=== PATIENT | male | born 1935 | race Caucasian/White ===

== ENCOUNTER 2016-12-29 14:12 | Inpatient (IN) | payer MEDICARE, OTHER ==
[~2016-12-29] VITALS: Ht 188 cm; Wt 111.2 kg
[~2016-12-29 14:12] MED LIST: ATOR20TA86 PO; ERGO500050 PO; ESCI10TA PO; FERR-89 PO; LISI1TAB9 PO; MET750 PO; OXYC10 PO; PRED10TA3 PO; SENN-161 PO
[2016-12-29] MEDS ORDERED: LOPERAMIDE HCL 2 MG CAPSULE PO ONE (15:00)
[2016-12-29] MEDS ORDERED: HYDROCORTISONE SOD SUCC 100 MG/2 ML VIAL IVP ONE (15:00)
[2016-12-29] MEDS ORDERED: ACETAMINOPHEN 1000 MG/ISO-OSM 100 ML IV ONE (15:00)
[2016-12-29] MEDS ORDERED: SODIUM CHLORIDE 0.9% 1,000 ML IV ONE ×4 (15:00→23:45)
[2016-12-29] MEDS ORDERED: ONDANSETRON HCL 4 MG/2 ML VIAL IVP ONE (15:00)
[2016-12-29 15:15] LABS: BASOPHILS % (AUTO) 0.1 % (0.0-2.0); EOSINOPHILS % (AUTO) 0.6 % (1.0-6.0); HEMATOCRIT 39.1 % (41-53); HEMOGLOBIN 12.9 g/dL (13.5-17.5); LYMPHOCYTES # (AUTO) 2.6 K/uL (1.0-4.8); LYMPHOCYTES % (AUTO) 10.2 % (22.0-44.0); MEAN CORPUSCULAR HEMOGLOBIN 29.6 pg (26.0-34.0); MEAN CORPUSCULAR VOLUME 89 fL (80-100); MONOCYTES # (AUTO) 0.7 K/uL (0.1-1.0); MONOCYTES % (AUTO) 2.9 % (2.0-9.0); NEUTROPHILS # (AUTO) 21.6 K/uL (1.8-7.7); PLATELET COUNT (AUTO) 163 K/uL (150-450); RED BLOOD CELL COUNT(AUTO) 4.37 MIL/uL (4.50-5.90); RED CELL DISTRIBUTION WIDTH 15.1 % (11.5-14.5); WHITE BLOOD COUNT (AUTO) 25.1 K/uL (4.5-11.0)
[2016-12-29 15:21] LABS: NEUTROPHILS % (AUTO) 86.2 % (40.0-70.0)
[2016-12-29 15:27] LABS: ANION GAP 11 mmol/L (8-16); CARBON DIOXIDE 26 mmol/L (22-29); CHLORIDE 101 mmol/L (98-107); CREATININE 4.19 mg/dL (0.60-1.30); GLOMERULAR FILTR. RATE CALC 14 mL/min (>60); SODIUM SERUM 138 mmol/L (136-145); UREA NITROGEN, BLOOD 34 mg/dL (7-18)
[2016-12-29 15:33] LABS: ALANINE AMINOTRANSFERASE 528 U/L (12-78); ALBUMIN 3.3 g/dL (3.4-5.0); ASPARTATE AMINOTRANSFERASE 365 U/L (15-37); BILIRUBIN,TOTAL 3.2 mg/dL (0.1-1.0); TOTAL PROTEIN, SERUM 6.1 g/dL (6.4-8.2)
[2016-12-29 15:52] LABS: LACTIC ACID 4.5 mmol/L (0.4-2.0)
[2016-12-29 16:28] LABS: APPEARANCE,URINE CLOUDY (CLEAR); GLUCOSE, URINE (UA) NEGATIVE (NEGATIVE); KETONES,URINE NEGATIVE (NEGATIVE); LEUKOCYTE ESTERASE ,URINE NEGATIVE (NEGATIVE); OCCULT BLOOD,URINE SMALL (NEGATIVE); PROTEIN,URINE POS 1+ (NEGATIVE)
[2016-12-29] MEDS ORDERED: PIPERACILLIN/TAZO 3.375 GM/D5W 50 ML IV ONE (16:30)
[2016-12-29 16:45] LABS: SQUAMOUS EPITHELIAL CELL,UR Few /LPF (None Seen)
[2016-12-29] MEDS ORDERED: LEVOFLOXACIN 500 MG/D5% WATER 100 ML IV ONE (16:45)
[2016-12-29] MEDS ORDERED: OSELTAMIVIR PHOSPHATE 75 MG CAPSULE PO ONE (16:45)
[2016-12-29 17:00] LABS: INFLUENZA TYPE B NEGATIVE FOR TYPE B (NEGATIVE)
[2016-12-29 17:10] LABS: REFLEX LACTIC ACID? YES YES
[2016-12-29] MEDS ORDERED: PHENYLEPHRINE 200 MG/D5%-WATER 250 ML IV PRN (17:30)
[2016-12-29] MEDS ORDERED: 0.9% SODIUM CHLORIDE 10 ML SYRINGE IVP PRN (19:15)
[2016-12-29] MEDS ORDERED: OxyCODONE HCL/ACETAMINOPHEN 5-325 MG TABLET PO PRN (19:15)
[2016-12-29] MEDS ORDERED: ACETAMINOPHEN 325 MG TABLET PO PRN (19:15)
[2016-12-29] MEDS ORDERED: MAGNESIUM HYDROXIDE SUSPENSION 30 ML UDCUP PO PRN (19:15)
[2016-12-29] MEDS ORDERED: ONDANSETRON HCL 4 MG/2 ML VIAL IVP PRN (19:15)
[2016-12-29] MEDS ORDERED: VANCOMYCIN HCL 1 GM/D5% WATER 200 ML IV PRN (19:30)
[2016-12-29] MEDS: DOCUSATE SODIUM 100 MG CAPSULE PO SCH (20:37)
[2016-12-29 20:40] VITALS: BP 112/62
[2016-12-29] MEDS: MethylPREDNISolone SOD SUCC 125 MG/2 ML VIAL IVP SCH (20:41)
[2016-12-29] MEDS: PANTOPRAZOLE SODIUM 40 MG/VIAL IVP SCH (20:41)
[2016-12-29] MEDS: VANCOMYCIN HCL 1 GM/D5% WATER 200 ML IV SCH (20:41)
[2016-12-29] MEDS: OxyCODONE HCL/ACETAMINOPHEN 5-325 MG TABLET PO PRN (20:51)
[2016-12-29 21:51] VITALS: BP 116/68
[2016-12-29] MEDS ORDERED: -PHARMACY VACCINE NOTE- MISC ONE ×2 (22:15)
[2016-12-29] MEDS ORDERED: INFLUENZA VIRUS VACCINE QVS 2016-17 (3YR+)/PF 60 MCG/0.5 ML SYRINGE IM ONE (22:15)
[2016-12-29] MEDS ORDERED: NOREPINEPHRINE 4 MG/D5%-WATER 250 ML IV PRN (22:38)
[2016-12-29] MEDS ORDERED: SODIUM CHLORIDE 0.9% 1,000 ML IV SCH (22:45)
[2016-12-29] MEDS: PIPERACILLIN SODIUM/TAZOBACTAM 2.25 GM in DEXTROSE 5%-WATER 50 ML IV SCH (23:22)
[2016-12-30] VITALS (7 sets, daily range): BP systolic 109–139; BP diastolic 61–90
[2016-12-30] MEDS ORDERED: ALBUMIN HUMAN 25%-25GM/100ML 100 ML IV SCH
[2016-12-30] MEDS: MethylPREDNISolone SOD SUCC 125 MG/2 ML VIAL IVP SCH ×4 (00:24→23:41)
[2016-12-30] MEDS: VANCOMYCIN HCL 1 GM/D5% WATER 200 ML IV SCH (00:24)
[2016-12-30] MEDS: PIPERACILLIN SODIUM/TAZOBACTAM 2.25 GM in DEXTROSE 5%-WATER 50 ML IV SCH ×4 (05:04→23:41)
[2016-12-30 06:20] LABS: CREATININE 4.08 mg/dL (0.60-1.30); MAGNESIUM 2.2 mg/dL (1.80-2.40); PHOSPHORUS 4.6 mg/dL (2.5-4.9); POTASSIUM 5.7 mmol/L (3.5-5.1)
[2016-12-30 06:21] LABS: HEMATOCRIT 36.7 % (41-53); HEMOGLOBIN 12.1 g/dL (13.5-17.5); MEAN CORPUSCULAR HEMOGLOBIN 29.7 pg (26.0-34.0); MEAN CORPUSCULAR HGB CONC 33.1 G/dL (31.0-37.0); MEAN CORPUSCULAR VOLUME 90 fL (80-100); PLATELET COUNT (AUTO) 134 K/uL (150-450); RED BLOOD CELL COUNT(AUTO) 4.08 MIL/uL (4.50-5.90); RED CELL DISTRIBUTION WIDTH 14.9 % (11.5-14.5); WHITE BLOOD COUNT (AUTO) 20.1 K/uL (4.5-11.0)
[2016-12-30 07:29] LABS: BAND NEUTROPHILS % (MANUAL) 3 % (1-5); LYMPHOCYTES % (MANUAL) 1 % (22-44); REACTIVE LYMPHOCYTES 4 % (0-0); TOTAL CELLS COUNTED 100
[2016-12-30] MEDS: DOCUSATE SODIUM 100 MG CAPSULE PO SCH ×3 (08:23→20:38)
[2016-12-30] MEDS: PANTOPRAZOLE SODIUM 40 MG/VIAL IVP SCH (08:23)
[2016-12-30] MEDS: OxyCODONE HCL/ACETAMINOPHEN 5-325 MG TABLET PO PRN (08:23)
[2016-12-30] MEDS ORDERED: SODIUM POLYSTYRENE SULFONATE 15 GM/60 ML SUSPENSION BOTTLE PO ONE (14:15)
[2016-12-30 19:11] LABS: ABG A-A DIFF O2 74.6 mmHg (10-20.0); ABG BASE EXCESS -3.8 mmol/L (-2.0-3.0); ABG HCO3 21.8 mmol/L (22.0-26.0); ABG OXYHEMOGLOBIN 95.9 % (94.0-100.0); ABG PCO2 34 mmHg (35-45); ABG PH 7.402 (7.35-7.450); TEMPERATURE, FAHRENHEIT, BG 98.6 FAHREN (96.0-98.6)
[2016-12-30 19:12] LABS: ALLEN TEST, BLOOD GAS Positive
[2016-12-31] VITALS: BP 115/77
[2016-12-31] MEDS: SODIUM CHLORIDE 0.9% 1,000 ML IV SCH ×2 (00:35→20:54)
[2016-12-31] MEDS: AZITHROMYCIN 500 MG/NS 250 ML IV SCH (01:06)
[2016-12-31 04:00] VITALS: BP 130/71
[2016-12-31] MEDS: PIPERACILLIN SODIUM/TAZOBACTAM 2.25 GM in DEXTROSE 5%-WATER 50 ML IV SCH (05:14)
[2016-12-31 05:20] LABS: HEMATOCRIT 35.1 % (41-53); HEMOGLOBIN 11.9 g/dL (13.5-17.5); MEAN CORPUSCULAR HEMOGLOBIN 29.8 pg (26.0-34.0); MEAN CORPUSCULAR HGB CONC 33.9 G/dL (31.0-37.0); MEAN CORPUSCULAR VOLUME 88 fL (80-100); PLATELET COUNT (AUTO) 147 K/uL (150-450); RED CELL DISTRIBUTION WIDTH 15.2 % (11.5-14.5)
[2016-12-31 05:39] LABS: BILIRUBIN,TOTAL 0.8 mg/dL (0.1-1.0); CALCIUM, TOTAL 8.2 mg/dL (8.8-10.5); CREATININE 3.1 mg/dL (0.60-1.30); POTASSIUM 4.5 mmol/L (3.5-5.1); TOTAL PROTEIN, SERUM 6.2 g/dL (6.4-8.2)
[2016-12-31 08:00] VITALS: BP 131/90
[2016-12-31] MEDS: DOCUSATE SODIUM 100 MG CAPSULE PO SCH ×2 (08:41→20:54)
[2016-12-31] MEDS: PANTOPRAZOLE SODIUM 40 MG/VIAL IVP SCH (08:41)
[2016-12-31] MEDS: MethylPREDNISolone SOD SUCC 125 MG/2 ML VIAL IVP SCH ×2 (08:41→15:12)
[2016-12-31] MEDS ORDERED: VANCOMYCIN HCL 1 GM/D5% WATER 200 ML IV ONE (09:00)
[2016-12-31] MEDS ORDERED: MEBROFENIN TC99M/MCL ISOTOPE 1 EA INJ INJ ONE (10:00)
[2016-12-31 10:56] VITALS: BP 133/82
[2016-12-31 11:09] LABS: BAND NEUTROPHILS % (MANUAL) 10 % (1-5); LYMPHOCYTES % (MANUAL) 3 % (22-44); TOTAL CELLS COUNTED 100
[2016-12-31] MEDS: PIPERACILLIN/TAZO 3.375 GM/D5W 50 ML IV SCH ×3 (13:02→23:05)
[2016-12-31 15:38] VITALS: BP 136/80
[2016-12-31 19:32] VITALS: BP 145/83
[2016-12-31] MEDS: MethylPREDNISolone SOD SUCC 40 MG/ML VIAL IVP SCH (23:06)
[2017-01-01] MEDS: AZITHROMYCIN 500 MG/NS 250 ML IV SCH (00:11)
[2017-01-01 00:15] VITALS: BP 115/63
[2017-01-01 04:28] VITALS: BP 127/73
[2017-01-01] MEDS: PIPERACILLIN/TAZO 3.375 GM/D5W 50 ML IV SCH ×4 (06:55→23:12)
[2017-01-01 07:30] VITALS: BP 129/58
[2017-01-01] MEDS ORDERED: VANCOMYCIN HCL 1.5 GM in DEXTROSE 5%-WATER 250 ML IV ONE (08:00)
[2017-01-01] MEDS: MethylPREDNISolone SOD SUCC 40 MG/ML VIAL IVP SCH (08:19)
[2017-01-01] MEDS: PANTOPRAZOLE SODIUM 40 MG/VIAL IVP SCH (08:19)
[2017-01-01] MEDS: DOCUSATE SODIUM 100 MG CAPSULE PO SCH ×2 (08:20→20:07)
[2017-01-01 10:45] LABS: EOSINOPHILS % (AUTO) 0 % (1.0-6.0); HEMATOCRIT 33.3 % (41-53); HEMOGLOBIN 11.1 g/dL (13.5-17.5); LYMPHOCYTES # (AUTO) 0.4 K/uL (1.0-4.8); LYMPHOCYTES % (AUTO) 2.6 % (22.0-44.0); MEAN CORPUSCULAR HEMOGLOBIN 29.4 pg (26.0-34.0); MEAN CORPUSCULAR HGB CONC 33.3 G/dL (31.0-37.0); MEAN CORPUSCULAR VOLUME 88 fL (80-100); MONOCYTES # (AUTO) 0.2 K/uL (0.1-1.0); NEUTROPHILS # (AUTO) 15.3 K/uL (1.8-7.7); PLATELET COUNT (AUTO) 113 K/uL (150-450); RED BLOOD CELL COUNT(AUTO) 3.76 MIL/uL (4.50-5.90); WHITE BLOOD COUNT (AUTO) 15.9 K/uL (4.5-11.0)
[2017-01-01 10:47] LABS: NEUTROPHILS % (AUTO) 96.4 % (40.0-70.0)
[2017-01-01 10:52] LABS: CALCIUM, TOTAL 7.8 mg/dL (8.8-10.5); CREATININE 2.36 mg/dL (0.60-1.30); POTASSIUM 4.2 mmol/L (3.5-5.1)
[2017-01-01 10:55] LABS: MAGNESIUM 2.4 mg/dL (1.80-2.40); PHOSPHORUS 4.1 mg/dL (2.5-4.9)
[2017-01-01 11:14] VITALS: BP 150/73
[2017-01-01] MEDS ORDERED: SODIUM CHLORIDE 0.9% 1,000 ML IV ONE (14:30)
[2017-01-01 15:27] VITALS: BP 128/61
[2017-01-01] MEDS: SODIUM CHLORIDE 0.9% 1,000 ML IV SCH (15:44)
[2017-01-01] MEDS ORDERED: SODIUM CHLORIDE 0.9% 500 ML IV ONE (17:17)
[2017-01-01] MEDS: OxyCODONE HCL/ACETAMINOPHEN 5-325 MG TABLET PO PRN (20:04)
[2017-01-01 20:13] VITALS: BP 130/76
[2017-01-01] MEDS: DOXYCYCLINE 100 MG in DEXTROSE 5%-WATER 100 ML IV SCH (21:55)
[2017-01-01] MEDS ORDERED: MAG HYDROX/AL HYDROX/SIMETH 30 ML SUSP UDCUP PO PRN (22:30)
[2017-01-02 00:12] VITALS: BP 127/67
[2017-01-02 04:39] VITALS: BP 124/62
[2017-01-02] MEDS: PIPERACILLIN/TAZO 3.375 GM/D5W 50 ML IV SCH ×3 (04:54→17:00)
[2017-01-02 05:43] LABS: EOSINOPHILS % (AUTO) 0.1 % (1.0-6.0); HEMATOCRIT 32.7 % (41-53); HEMOGLOBIN 10.8 g/dL (13.5-17.5); LYMPHOCYTES # (AUTO) 0.9 K/uL (1.0-4.8); LYMPHOCYTES % (AUTO) 7.8 % (22.0-44.0); MEAN CORPUSCULAR HEMOGLOBIN 29.5 pg (26.0-34.0); MEAN CORPUSCULAR HGB CONC 33.1 G/dL (31.0-37.0); MEAN CORPUSCULAR VOLUME 89 fL (80-100); MONOCYTES # (AUTO) 0.4 K/uL (0.1-1.0); MONOCYTES % (AUTO) 3.5 % (2.0-9.0); NEUTROPHILS # (AUTO) 10.5 K/uL (1.8-7.7); PLATELET COUNT (AUTO) 115 K/uL (150-450); RED BLOOD CELL COUNT(AUTO) 3.67 MIL/uL (4.50-5.90); RED CELL DISTRIBUTION WIDTH 14.5 % (11.5-14.5); WHITE BLOOD COUNT (AUTO) 11.9 K/uL (4.5-11.0)
[2017-01-02 05:48] LABS: CALCIUM, TOTAL 7.8 mg/dL (8.8-10.5); CREATININE 2.2 mg/dL (0.60-1.30); POTASSIUM 3.7 mmol/L (3.5-5.1)
[2017-01-02 05:51] LABS: NEUTROPHILS % (AUTO) 88.6 % (40.0-70.0)
[2017-01-02 05:54] LABS: MAGNESIUM 2.4 mg/dL (1.80-2.40); PHOSPHORUS 3.2 mg/dL (2.5-4.9)
[2017-01-02 07:23] VITALS: BP 156/88
[2017-01-02 07:28] LABS: PROCALCITONIN (PCT) 1.35 ng/mL (<0.50)
[2017-01-02] MEDS: DOCUSATE SODIUM 100 MG CAPSULE PO SCH (08:11)
[2017-01-02] MEDS: DOXYCYCLINE 100 MG in DEXTROSE 5%-WATER 100 ML IV SCH (08:12)
[2017-01-02] MEDS: PANTOPRAZOLE SODIUM 40 MG/VIAL IVP SCH (08:12)
[2017-01-02] MEDS ORDERED: PredniSONE 10 MG TABLET PO SCH (09:00)
[2017-01-02 11:31] VITALS: BP 149/74
[2017-01-02 14:24] LABS: ORGANISM ID Not indicated.
[2017-01-02 16:32] VITALS: BP 146/70
== END 2017-01-02 17:20 | disposition home health service (06) | DRG 871 ==
LOC: EMS 14:14 → ICU 17:07 → 5N 12-31 10:21
PROVIDERS: ADMIT Internal Medicine; ATTEND Internal Medicine
PROC: 06HM33Z Insertion of Infusion Device into Right Femoral Vein, Percutaneous Approach (ICD-10-PCS; principal; 2016-12-29)
PROC: B54BZZA Ultrasonography of Right Lower Extremity Veins, Guidance (ICD-10-PCS; 2016-12-29)
DX: A41.9 Sepsis, unspecified organism (principal); E43 Unspecified severe protein-calorie malnutrition; J69.0 Pneumonitis due to inhalation of food and vomit; R65.21 Severe sepsis with septic shock; N17.9 Acute kidney failure, unspecified; E87.2 Acidosis; J98.11 Atelectasis; K51.90 Ulcerative colitis, unspecified, without complications; E86.0 Dehydration; R74.8 Abnormal levels of other serum enzymes; I12.9 Hypertensive chronic kidney disease with stage 1 through stage 4 chronic kidney disease, or unspecified chronic kidney disease; N18.9 Chronic kidney disease, unspecified; E66.9 Obesity, unspecified; E74.39 Other disorders of intestinal carbohydrate absorption; E78.00 Pure hypercholesterolemia, unspecified; E87.5 Hyperkalemia; G89.29 Other chronic pain; I44.0 Atrioventricular block, first degree; K57.30 Diverticulosis of large intestine without perforation or abscess without bleeding; Z96.649 Presence of unspecified artificial hip joint; N40.0 Benign prostatic hyperplasia without lower urinary tract symptoms; R53.81 Other malaise; Z68.31 Body mass index [BMI] 31.0-31.9, adult; Z79.899 Other long term (current) drug therapy; Z87.81 Personal history of (healed) traumatic fracture; Z98.890 Other specified postprocedural states; Z79.52 Long term (current) use of systemic steroids; Z87.891 Personal history of nicotine dependence
CPT/HCPCS: 36556; 51702; 71250; 74176; 76705; 78226; 82570; 82805; 83605; 83735; 84100; 84132; 84145; 84156; 84300; 84540; 87040; 87045; 87081; 87449; 87804; 87899; 89055; 93005; 96361; 96365; 96366; 96367; 96368; 96375; 97161; 97165; 99291; A9537; C9113; J0131; J0456; J1720; J1956; J2405; J2543; J2920; J2930; J3370; J3490; J7030; J7040; J7060; P9046

== ENCOUNTER → 2017-04-11 | Outpatient (CLI) | payer MEDICARE, OTHER ==
[~2017-04-11] MED LIST changes: -FERR-89 PO; +FERS325 PO; -LISI1TAB9 PO
== END | disposition home or self-care (01) ==
LOC: RADPV 08:04
PROVIDERS: ATTEND Family Medicine
DX: Z01.818 Encounter for other preprocedural examination (principal); I51.7 Cardiomegaly; I70.0 Atherosclerosis of aorta; J84.9 Interstitial pulmonary disease, unspecified; R91.8 Other nonspecific abnormal finding of lung field
CPT/HCPCS: 71020

== ENCOUNTER 2017-04-16 06:15 | Day surgery (SDC) | payer MEDICARE, OTHER ==
[~2017-04-16] VITALS: Ht 185.4 cm; Wt 108.0 kg
[~2017-04-16 06:15] MED LIST changes: +FERR-89 PO; -FERS325 PO; -MET750 PO; +RINGERS SOLUTION,LACTATED 1,000 ML IV ONE; +SODIUM CHLORIDE 0.9% 1,000 ML IV ONE
[2017-04-16] MEDS ORDERED: RINGERS SOLUTION,LACTATED 1,000 ML IV ONE ×2 (06:18→08:48)
[2017-04-16] MEDS ORDERED: LISI-661 PO (07:05)
[2017-04-16] MEDS ORDERED: CeFAZolin 2 GM/DEXTROSE 50 ML IV ONE ×2 (07:07→07:30)
[2017-04-16 07:12] LABS: BASOPHILS # (AUTO) 0.02 K/uL (0.00-0.20); BASOPHILS % (AUTO) 0.2 % (0.0-2.0); EOSINOPHILS # (AUTO) 0.21 K/uL (0.00-0.70); EOSINOPHILS % (AUTO) 2.63 % (1.0-6.0); HEMATOCRIT 35.3 % (41-53); LYMPHOCYTES # (AUTO) 3.2 K/uL (1.0-4.8); LYMPHOCYTES % (AUTO) 39.5 % (22.0-44.0); MEAN CORPUSCULAR HEMOGLOBIN 30.4 pg (26.0-34.0); MEAN CORPUSCULAR HGB CONC 33.9 G/dL (31.0-37.0); MEAN CORPUSCULAR VOLUME 90 fL (80-100); MONOCYTES # (AUTO) 0.8 K/uL (0.1-1.0); MONOCYTES % (AUTO) 9.5 % (2.0-9.0); NEUTROPHILS # (AUTO) 3.9 K/uL (1.8-7.7); NEUTROPHILS % (AUTO) 48.2 % (40.0-70.0); PLATELET COUNT (AUTO) 121 K/uL (150-450); RED BLOOD CELL COUNT(AUTO) 3.94 MIL/uL (4.50-5.90); RED CELL DISTRIBUTION WIDTH 14.9 % (11.5-14.5)
[2017-04-16 07:23] LABS: CALCIUM, TOTAL 8.7 mg/dL (8.8-10.5); CREATININE 1.77 mg/dL (0.60-1.30); POTASSIUM 4.9 mmol/L (3.5-5.1)
[2017-04-16 07:25] LABS: PROTHROMBIN TIME 10.9 SEC (9.4-11.6)
[2017-04-16] MEDS ORDERED: HYDROmorphone 2 MG/ML SYRINGE IVP PRN (08:15)
[2017-04-16] MEDS ORDERED: FentaNYL CITRATE-PF 100 MCG/2 ML VIAL IVP PRN (08:15)
[2017-04-16] MEDS ORDERED: MEPERIDINE-PF 25 MG/ML SYRINGE IVP PRN (08:15)
[2017-04-16] MEDS ORDERED: MIDAZOLAM HCL 2 MG/2 ML VIAL IVP ONE (12:00)
[2017-04-16] MEDS ORDERED: 0.9% SODIUM CHLORIDE 10 ML VIAL IVP ONE (12:00)
[2017-04-16] MEDS ORDERED: EPHEDrine SULFATE 50 MG/ML VIAL IM ONE (12:00)
[2017-04-16] MEDS ORDERED: PROPOFOL 1% 20 ML VIAL IVP ONE (12:00)
[2017-04-16] MEDS ORDERED: PHENYLEPHRINE HCL 10 MG/ML VIAL IVP ONE (12:00)
[2017-04-16] MEDS ORDERED: FentaNYL CITRATE-PF 100 MCG/2 ML VIAL IVP ONE (12:00)
[2017-04-16] MEDS ORDERED: OXYGEN THERAPY IH SCH (20:00)
== END 2017-04-16 14:25 | disposition home or self-care (01) ==
LOC: SURGERY 06:15
PROVIDERS: ATTEND Orthopaedic Surgery
DX: T84.84XA Pain due to internal orthopedic prosthetic devices, implants and grafts, initial encounter (principal); I44.7 Left bundle-branch block, unspecified; D64.9 Anemia, unspecified; M54.9 Dorsalgia, unspecified; I10 Essential (primary) hypertension; E66.3 Overweight; Z98.41 Cataract extraction status, right eye; Z98.42 Cataract extraction status, left eye; Z98.890 Other specified postprocedural states; Z79.01 Long term (current) use of anticoagulants; Z87.01 Personal history of pneumonia (recurrent); Y83.8 Other surgical procedures as the cause of abnormal reaction of the patient, or of later complication, without mention of misadventure at the time of the procedure; Y92.9 Unspecified place or not applicable
CPT/HCPCS: 20680; 36415; 80048; 85025; 85610; 85730; 88300; 93005; J0690; J2250; J2370; J2704; J3010; J3490; J7120

== ENCOUNTER → 2017-09-25 | Outpatient (CLI) | payer MEDICARE, OTHER ==
[~2017-09-25] MED LIST changes: -FERR-89 PO; +LISI-661 PO; -RINGERS SOLUTION,LACTATED 1,000 ML IV ONE; -SODIUM CHLORIDE 0.9% 1,000 ML IV ONE
== END | disposition home or self-care (01) ==
LOC: RADMN 08:08
PROVIDERS: ATTEND Internal Medicine Interventional Cardiology
DX: I67.82 Cerebral ischemia (principal); R90.82 White matter disease, unspecified
CPT/HCPCS: 70547; 70551

== ENCOUNTER 2018-12-10 14:02 | Inpatient (IN) | payer MEDICARE, OTHER ==
[~2018-12-10] VITALS: Ht 188 cm; Wt 99.4 kg
[~2018-12-10 14:02] MED LIST changes: +CIPR-278 PO; +METR500 PO; +PRED10 PO; -PRED10TA3 PO; +PRED20 PO; -SENN-161 PO
[2018-12-10] MEDS ORDERED: ASPIRIN 81 MG CHEWABLE TABLET PO ONE (15:00)
[2018-12-10 15:41] LABS: BASOPHILS % (AUTO) 0.1 % (0.0-2.0); EOSINOPHILS % (AUTO) 0 % (1.0-6.0); HEMATOCRIT 35.3 % (41-53); HEMOGLOBIN 12.2 g/dL (13.5-17.5); LYMPHOCYTES # (AUTO) 0.5 K/uL (1.0-4.8); LYMPHOCYTES % (AUTO) 5.4 % (22.0-44.0); MEAN CORPUSCULAR HEMOGLOBIN 31.6 pg (26.0-34.0); MEAN CORPUSCULAR HGB CONC 34.5 G/dL (31.0-37.0); MEAN CORPUSCULAR VOLUME 92 fL (80-100); MONOCYTES # (AUTO) 0.4 K/uL (0.1-1.0); MONOCYTES % (AUTO) 4.4 % (2.0-9.0); NEUTROPHILS # (AUTO) 8.8 K/uL (1.8-7.7); PLATELET COUNT (AUTO) 160 K/uL (150-450); RED BLOOD CELL COUNT(AUTO) 3.86 MIL/uL (4.50-5.90); RED CELL DISTRIBUTION WIDTH 14.3 % (11.5-14.5)
[2018-12-10 15:42] LABS: NEUTROPHILS % (AUTO) 90.1 % (40.0-70.0)
[2018-12-10 15:55] LABS: PROTHROMBIN TIME 10.2 SEC (9.4-11.6)
[2018-12-10 15:56] LABS: CALCIUM, TOTAL 9.2 mg/dL (8.8-10.5); CREATININE 2.09 mg/dL (0.60-1.30); POTASSIUM 5.1 mmol/L (3.5-5.1)
[2018-12-10 16:00] LABS: ALBUMIN 3.4 g/dL (3.4-5.0); BILIRUBIN,TOTAL 0.4 mg/dL (0.1-1.0); TOTAL PROTEIN, SERUM 6.4 g/dL (6.4-8.2)
[2018-12-10 16:21] LABS: APPEARANCE,URINE CLEAR (CLEAR); BILIRUBIN,URINE NEGATIVE (NEGATIVE); GLUCOSE, URINE (UA) 500 mg/dL (NEGATIVE); KETONES,URINE NEGATIVE (NEGATIVE); LEUKOCYTE ESTERASE ,URINE NEGATIVE (NEGATIVE); NITRATE,URINE NEGATIVE (NEGATIVE); OCCULT BLOOD,URINE NEGATIVE (NEGATIVE); PROTEIN,URINE POS 1+ (NEGATIVE); UROBILINOGEN,URINE 0.2 mg/dL (<=1.0)
[2018-12-10 16:27] LABS: AMPHET/METH SCREEN,URINE NEGATIVE (NEGATIVE); BARBITURATE SCREEN, URINE NEGATIVE (NEGATIVE); BENZODIAZEPINES SCREEN,URINE NEGATIVE (NEGATIVE); CANNABINOID SCREEN,URINE NEGATIVE (NEGATIVE); COCAINE SCREEN,URINE NEGATIVE (NEGATIVE); METHADONE SCREEN, URINE NEGATIVE (NEGATIVE); OPIATE SCREEN,URINE NEGATIVE (NEGATIVE)
[2018-12-10] MEDS ORDERED: SODIUM CHLORIDE 0.9% 1,000 ML IV ONE (16:30)
[2018-12-10 16:31] LABS: PHENCYCLIDINE SCREEN,URINE NEGATIVE (NEGATIVE)
[2018-12-10 16:33] LABS: BACTERIA,URINE Rare /HPF (None Seen); RBC,URINE 0-2 /HPF (0-2); SQUAMOUS EPITHELIAL CELL,UR Rare /LPF (None Seen); WBC,URINE 0-2 /HPF (0-5)
[2018-12-10] MEDS ORDERED: ONDANSETRON HCL 4 MG/2 ML VIAL IVP PRN ×2 (16:45→21:00)
[2018-12-10] MEDS ORDERED: 0.9% SODIUM CHLORIDE 10 ML SYRINGE IVP PRN (16:45)
[2018-12-10] MEDS ORDERED: ACETAMINOPHEN 325 MG TABLET PO PRN ×2 (16:45→21:00)
[2018-12-10 16:47] LABS: PLATELET MORPHOLOGY COMMENT NORMAL
[2018-12-10 20:22] VITALS: BP 157/99
[2018-12-10] MEDS ORDERED: BISACODYL 10 MG RECTAL RECTAL SUPPOSITORY PR PRN (21:00)
[2018-12-10] MEDS ORDERED: MAGNESIUM HYDROXIDE SUSPENSION 30 ML UDCUP PO PRN (21:00)
[2018-12-10] MEDS ORDERED: ZOLPIDEM TARTRATE 5 MG TABLET PO PRN (21:00)
[2018-12-10] MEDS ORDERED: MORPHINE SULFATE 4 MG/ML SYRINGE IVP PRN (21:00)
[2018-12-10] MEDS: DOCUSATE SODIUM 100 MG CAPSULE PO SCH (21:23)
[2018-12-10] MEDS: MetroNIDAZOLE 500 MG TABLET PO SCH (21:23)
[2018-12-10] MEDS: CIPROFLOXACIN HCL 500 MG TABLET PO SCH (23:00)
[2018-12-10] MEDS: HEPARIN SODIUM,PORCINE 5,000 UNITS/ML VIAL SQ SCH (23:01)
[2018-12-10 23:39] VITALS: BP 125/59
[2018-12-11 03:47] VITALS: BP 129/68
[2018-12-11 06:38] LABS: BASOPHILS % (AUTO) 0.4 % (0.0-2.0); EOSINOPHILS % (AUTO) 0.4 % (1.0-6.0); HEMATOCRIT 30.5 % (41-53); HEMOGLOBIN 10.6 g/dL (13.5-17.5); LYMPHOCYTES # (AUTO) 2.4 K/uL (1.0-4.8); LYMPHOCYTES % (AUTO) 27.6 % (22.0-44.0); MEAN CORPUSCULAR HEMOGLOBIN 31.4 pg (26.0-34.0); MEAN CORPUSCULAR HGB CONC 34.9 G/dL (31.0-37.0); MEAN CORPUSCULAR VOLUME 90 fL (80-100); MONOCYTES # (AUTO) 0.7 K/uL (0.1-1.0); MONOCYTES % (AUTO) 8.1 % (2.0-9.0); NEUTROPHILS # (AUTO) 5.6 K/uL (1.8-7.7); NEUTROPHILS % (AUTO) 63.5 % (40.0-70.0); PLATELET COUNT (AUTO) 139 K/uL (150-450); RED BLOOD CELL COUNT(AUTO) 3.38 MIL/uL (4.50-5.90); RED CELL DISTRIBUTION WIDTH 14.8 % (11.5-14.5)
[2018-12-11] MEDS: HYDROCODONE/ACETAMINOPHEN 5-325 MG TABLET PO PRN ×3 (06:50→21:14)
[2018-12-11 07:14] LABS: BILIRUBIN,TOTAL 0.4 mg/dL (0.1-1.0); CALCIUM, TOTAL 8.2 mg/dL (8.8-10.5); CREATININE 1.65 mg/dL (0.60-1.30); POTASSIUM 4.8 mmol/L (3.5-5.1); TOTAL PROTEIN, SERUM 5.3 g/dL (6.4-8.2)
[2018-12-11] MEDS: DOCUSATE SODIUM 100 MG CAPSULE PO SCH ×2 (08:20→20:11)
[2018-12-11] MEDS: ESCITALOPRAM OXALATE 10 MG TABLET PO SCH (08:20)
[2018-12-11] MEDS: ATORVASTATIN CALCIUM 20 MG TABLET PO SCH (08:20)
[2018-12-11] MEDS: MetroNIDAZOLE 500 MG TABLET PO SCH ×3 (08:20→20:11)
[2018-12-11] MEDS: CIPROFLOXACIN HCL 500 MG TABLET PO SCH ×2 (08:20→20:11)
[2018-12-11] MEDS: PredniSONE 20 MG TABLET PO SCH (08:20)
[2018-12-11] MEDS: HEPARIN SODIUM,PORCINE 5,000 UNITS/ML VIAL SQ SCH ×3 (08:20→23:07)
[2018-12-11] MEDS: PANTOPRAZOLE SODIUM 40 MG DR TABLET PO SCH (08:20)
[2018-12-11 08:22] VITALS: BP 125/76
[2018-12-11] MEDS ORDERED: LISINOPRIL 10 MG TABLET PO SCH (09:00)
[2018-12-11 10:51] VITALS: BP 135/70
[2018-12-11 15:26] VITALS: BP 115/60
[2018-12-11 21:11] VITALS: BP 111/63
[2018-12-11 23:39] VITALS: BP 107/66
[2018-12-12] VITALS (16 sets, daily range): BP systolic 93–183; BP diastolic 51–85
[2018-12-12] MEDS ORDERED: LIDOCAINE/PF 1% 30 ML VIAL ONE (07:58)
[2018-12-12] MEDS ORDERED: SODIUM BICARBONATE 50 MEQ/50 ML VIAL ONE (07:58)
[2018-12-12] MEDS: HEPARIN SODIUM,PORCINE 5,000 UNITS/ML VIAL SQ SCH ×4 (08:00→23:22)
[2018-12-12] MEDS: MetroNIDAZOLE 500 MG TABLET PO SCH ×3 (08:12→20:39)
[2018-12-12] MEDS: DOCUSATE SODIUM 100 MG CAPSULE PO SCH ×2 (09:00→20:39)
[2018-12-12] MEDS ORDERED: FentaNYL CITRATE-PF 100 MCG/2 ML VIAL ONE (09:01)
[2018-12-12] MEDS ORDERED: MIDAZOLAM HCL 2 MG/2 ML VIAL ONE ×2 (09:01→10:04)
[2018-12-12] MEDS ORDERED: IOHEXOL 300 MG/ML 50 ML VIAL ONE (09:08)
[2018-12-12] MEDS ORDERED: SODIUM CHLORIDE 0.9% 500 ML IV ONE (09:25)
[2018-12-12] MEDS ORDERED: FentaNYL CITRATE-PF 100 MCG/2 ML VIAL IVP ONE ×3 (09:30→10:30)
[2018-12-12] MEDS ORDERED: LIDOCAINE 1% 30 ML/SOD BICARB 8.4% 4 ML SQ ONE (09:30)
[2018-12-12] MEDS ORDERED: IOHEXOL 300 MG/ML 50 ML VIAL IVP ONE (09:30)
[2018-12-12] MEDS ORDERED: MIDAZOLAM HCL 2 MG/2 ML VIAL IVP ONE ×3 (09:30→10:30)
[2018-12-12] MEDS ORDERED: MORPHINE SULFATE 2 MG/ML SYRINGE ONE (10:15)
[2018-12-12] MEDS ORDERED: MORPHINE SULFATE 4 MG/ML SYRINGE IVP ONE (10:30)
[2018-12-12] MEDS ORDERED: ONDANSETRON HCL 4 MG/2 ML VIAL ONE (10:38)
[2018-12-12] MEDS ORDERED: ONDANSETRON HCL 4 MG/2 ML VIAL IVP ONE (10:45)
[2018-12-12] MEDS: CIPROFLOXACIN HCL 500 MG TABLET PO SCH ×2 (11:22→20:39)
[2018-12-12] MEDS: ESCITALOPRAM OXALATE 10 MG TABLET PO SCH (11:23)
[2018-12-12] MEDS: ATORVASTATIN CALCIUM 20 MG TABLET PO SCH (11:23)
[2018-12-12] MEDS: PredniSONE 20 MG TABLET PO SCH (11:23)
[2018-12-12] MEDS: AmLODIPine BESYLATE 5 MG TABLET PO SCH (11:23)
[2018-12-12] MEDS: PANTOPRAZOLE SODIUM 40 MG DR TABLET PO SCH (11:23)
[2018-12-12] MEDS ORDERED: SODIUM CHLORIDE 0.9% 100 ML ONE (15:13)
[2018-12-12] MEDS: CeFAZolin 1 GM/DEXTROSE 50 ML IV SCH (16:14)
[2018-12-13] VITALS: BP 120/68
[2018-12-13] MEDS: CeFAZolin 1 GM/DEXTROSE 50 ML IV SCH ×2 (00:37→08:18)
[2018-12-13 04:35] VITALS: BP 122/74
[2018-12-13 06:35] LABS: BASOPHILS % (AUTO) 0.1 % (0.0-2.0); EOSINOPHILS % (AUTO) 0.1 % (1.0-6.0); HEMATOCRIT 34.7 % (41-53); HEMOGLOBIN 11.7 g/dL (13.5-17.5); LYMPHOCYTES # (AUTO) 1.7 K/uL (1.0-4.8); LYMPHOCYTES % (AUTO) 15.4 % (22.0-44.0); MEAN CORPUSCULAR HEMOGLOBIN 30.8 pg (26.0-34.0); MEAN CORPUSCULAR HGB CONC 33.9 G/dL (31.0-37.0); MEAN CORPUSCULAR VOLUME 91 fL (80-100); MONOCYTES # (AUTO) 0.7 K/uL (0.1-1.0); MONOCYTES % (AUTO) 6.2 % (2.0-9.0); NEUTROPHILS # (AUTO) 8.8 K/uL (1.8-7.7); NEUTROPHILS % (AUTO) 78.2 % (40.0-70.0); PLATELET COUNT (AUTO) 132 K/uL (150-450); RED BLOOD CELL COUNT(AUTO) 3.81 MIL/uL (4.50-5.90); RED CELL DISTRIBUTION WIDTH 14.9 % (11.5-14.5)
[2018-12-13 07:13] LABS: CALCIUM, TOTAL 8.2 mg/dL (8.8-10.5); CREATININE 1.6 mg/dL (0.60-1.30); POTASSIUM 4.7 mmol/L (3.5-5.1)
[2018-12-13 07:50] VITALS: BP 123/68
[2018-12-13] MEDS: HEPARIN SODIUM,PORCINE 5,000 UNITS/ML VIAL SQ SCH (08:18)
[2018-12-13] MEDS: PredniSONE 20 MG TABLET PO SCH (08:18)
[2018-12-13] MEDS: ESCITALOPRAM OXALATE 10 MG TABLET PO SCH (08:18)
[2018-12-13] MEDS: DOCUSATE SODIUM 100 MG CAPSULE PO SCH (08:19)
[2018-12-13] MEDS: AmLODIPine BESYLATE 5 MG TABLET PO SCH (08:19)
[2018-12-13] MEDS: CIPROFLOXACIN HCL 500 MG TABLET PO SCH (08:19)
[2018-12-13] MEDS: MetroNIDAZOLE 500 MG TABLET PO SCH (08:19)
[2018-12-13] MEDS: ATORVASTATIN CALCIUM 20 MG TABLET PO SCH (08:19)
[2018-12-13] MEDS: PANTOPRAZOLE SODIUM 40 MG DR TABLET PO SCH (08:20)
[2018-12-13 14:12] VITALS: BP 123/72
[2018-12-13] MEDS ORDERED: AMLO-511 PO (14:17)
[2018-12-24] MEDS ORDERED: ERGOCALCIFEROL (VIT D2) 50,000 UNITS CAPSULE PO SCH (09:00)
== END 2018-12-13 16:00 | disposition home or self-care (01) | DRG 243 ==
LOC: EMS 14:03 → 5S 18:58
PROVIDERS: ADMIT Internal Medicine; ATTEND Internal Medicine
PROC: 0JH606Z Insertion of Pacemaker, Dual Chamber into Chest Subcutaneous Tissue and Fascia, Open Approach (ICD-10-PCS; principal; 2018-12-12)
PROC: 02H63JZ Insertion of Pacemaker Lead into Right Atrium, Percutaneous Approach (ICD-10-PCS; 2018-12-12)
PROC: 02HK3JZ Insertion of Pacemaker Lead into Right Ventricle, Percutaneous Approach (ICD-10-PCS; 2018-12-12)
PROC: B5171ZZ Fluoroscopy of Left Subclavian Vein using Low Osmolar Contrast (ICD-10-PCS; 2018-12-12)
DX: R00.1 Bradycardia, unspecified (principal); K51.911 Ulcerative colitis, unspecified with rectal bleeding; N17.9 Acute kidney failure, unspecified; E78.5 Hyperlipidemia, unspecified; D64.9 Anemia, unspecified; I44.7 Left bundle-branch block, unspecified; E11.9 Type 2 diabetes mellitus without complications; I10 Essential (primary) hypertension; K59.00 Constipation, unspecified; Z96.649 Presence of unspecified artificial hip joint; Z79.891 Long term (current) use of opiate analgesic; Z79.52 Long term (current) use of systemic steroids
CPT/HCPCS: 33208; 36005; 70450; 76000; 87081; 93005; 93306; G0378; J0690; J1644; J2250; J2270; J2405; J3010; J3490; J7030; J7050; Q9967

== ENCOUNTER → 2019-01-20 | Outpatient (CLI) | payer MEDICARE, OTHER ==
[~2019-01-20] MED LIST changes: +AMLO-511 PO; -CIPR-278 PO; -LISI-661 PO; -METR500 PO
== END | disposition home or self-care (01) ==
LOC: RADPV 10:07
PROVIDERS: ATTEND Internal Medicine Nephrology
DX: N40.0 Benign prostatic hyperplasia without lower urinary tract symptoms (principal); I12.9 Hypertensive chronic kidney disease with stage 1 through stage 4 chronic kidney disease, or unspecified chronic kidney disease; E11.22 Type 2 diabetes mellitus with diabetic chronic kidney disease; N18.3 Chronic kidney disease, stage 3 (moderate); R73.02 Impaired glucose tolerance (oral)
CPT/HCPCS: 76770

== ENCOUNTER 2019-06-25 12:12 | Day surgery (SDC) | payer MEDICARE, OTHER ==
[~2019-06-25] VITALS: Ht 188 cm; Wt 99.1 kg
[~2019-06-25 12:12] MED LIST changes: +ALEN70TA10 PO; -AMLO-511 PO; +AMLO5TAB9 PO; +AMMO225L14 TP; -ERGO500050 PO; -ESCI10TA PO; +FURO40 PO; +LISI-662 PO; +MESA0.37 PO; +MESA400C2 PO; +METO25XL PO; +POLY238P2 PO; -PRED20 PO; +SODIUM CHLORIDE 0.9% 1,000 ML IV ONE; +TAMS-1 PO; +TEST100V11 IM; +TEST5GEL TD; +[UNRECOGNIZED DRUG - CODE] PR
[2019-06-25] MEDS ORDERED: LIDOCAINE/PF 2% 5 ML SYRINGE IVP ONE (12:13)
[2019-06-25] MEDS ORDERED: PROPOFOL 1% 20 ML VIAL IVP ONE (12:13)
[2019-06-25] MEDS: SODIUM CHLORIDE 0.9% 1,000 ML IV ONE (12:56)
[2019-06-25] MEDS ORDERED: PROPOFOL 1000 MG/ISO-OSM 100 ML IV ONE (13:48)
== END 2019-06-25 15:45 | disposition home or self-care (01) ==
LOC: SURGERY 12:12
PROVIDERS: ATTEND Student in an Organized Health Care Education/Training Program
DX: K63.89 Other specified diseases of intestine (principal); K62.89 Other specified diseases of anus and rectum; K62.3 Rectal prolapse; K62.1 Rectal polyp; K64.9 Unspecified hemorrhoids; N18.9 Chronic kidney disease, unspecified; K20.9 Esophagitis, unspecified; E78.00 Pure hypercholesterolemia, unspecified; D50.9 Iron deficiency anemia, unspecified; K31.89 Other diseases of stomach and duodenum; K44.9 Diaphragmatic hernia without obstruction or gangrene; K22.8 Other specified diseases of esophagus; Z95.0 Presence of cardiac pacemaker; Z79.899 Other long term (current) drug therapy; Z98.890 Other specified postprocedural states
CPT/HCPCS: 43239; 45380; 45385; C1769; J2704 ×2; J3490; J7030

== ENCOUNTER 2019-11-23 09:38 | Day surgery (SDC) | payer MEDICARE, OTHER ==
[~2019-11-23] VITALS: Ht 190.5 cm; Wt 93.6 kg
[~2019-11-23 09:38] MED LIST changes: -OXYC10 PO; +OXYC10TA59 PO; -SODIUM CHLORIDE 0.9% 1,000 ML IV ONE
[2019-11-23] MEDS ORDERED: PROPOFOL 1% 20 ML VIAL IVP ONE (09:39)
[2019-11-23] MEDS ORDERED: SODIUM CHLORIDE 0.9% 1,000 ML IV ONE (10:00)
[2019-11-23] MEDS ORDERED: APIX5TAB PO (10:20)
[2019-11-23] MEDS ORDERED: LOSA25TA41 PO (10:20)
[2019-11-23 11:05] LABS: BASOPHILS % (AUTO) 0.8 % (0.0-2.0); EOSINOPHILS % (AUTO) 0.9 % (1.0-6.0); HEMATOCRIT 37.5 % (41-53); HEMOGLOBIN 12.3 g/dL (13.5-17.5); LYMPHOCYTES % (AUTO) 12.7 % (22.0-44.0); MEAN CORPUSCULAR HEMOGLOBIN 28.7 pg (26.0-34.0); MEAN CORPUSCULAR HGB CONC 32.8 G/dL (31.0-37.0); MEAN CORPUSCULAR VOLUME 87 fL (80-100); MONOCYTES # (AUTO) 0.5 K/uL (0.1-1.0); MONOCYTES % (AUTO) 5.8 % (2.0-9.0); NEUTROPHILS # (AUTO) 6.5 K/uL (1.8-7.7); NEUTROPHILS % (AUTO) 79.8 % (40.0-70.0); PLATELET COUNT (AUTO) 121 K/uL (150-450); RED BLOOD CELL COUNT(AUTO) 4.29 MIL/uL (4.50-5.90); RED CELL DISTRIBUTION WIDTH 14.6 % (11.5-14.5)
[2019-11-23] MEDS ORDERED: SODIUM CHLORIDE 0.9% 1,000 ML ONE (11:21)
[2019-11-23] MEDS ORDERED: BENZOCAINE 20% 50 MCG/SPRAY 57 GM ONE (11:49)
[2019-11-23 12:46] LABS: INR 1.1 (0.9-1.1); PROTHROMBIN TIME 11.2 SEC (9.4-11.6)
[2019-11-23 13:19] VITALS: BP 173/98
[2019-11-23 13:23] LABS: CALCIUM, TOTAL 8.3 mg/dL (8.8-10.5); CREATININE 2.26 mg/dL (0.60-1.30); POTASSIUM 4.2 mmol/L (3.5-5.1)
[2019-11-23 13:28] LABS: ALBUMIN 3.6 g/dL (3.4-5.0); BILIRUBIN,TOTAL 0.5 mg/dL (0.1-1.0); TOTAL PROTEIN, SERUM 5.9 g/dL (6.4-8.2)
[2019-11-23] MEDS ORDERED: BENZOCAINE 20% 50 MCG/SPRAY 57 GM TP ONE (13:45)
[2019-11-23 14:30] VITALS: BP 102/68
== END 2019-11-23 15:50 | disposition home or self-care (01) ==
LOC: CATHLAB 09:38
PROVIDERS: ATTEND Internal Medicine Interventional Cardiology
DX: I48.91 Unspecified atrial fibrillation (principal); I08.0 Rheumatic disorders of both mitral and aortic valves; I10 Essential (primary) hypertension; I25.10 Atherosclerotic heart disease of native coronary artery without angina pectoris; I25.5 Ischemic cardiomyopathy; Z98.890 Other specified postprocedural states; Z79.899 Other long term (current) drug therapy; Z80.1 Family history of malignant neoplasm of trachea, bronchus and lung
CPT/HCPCS: 36415; 80053; 85025; 85610; 85730; 92960; 93005; 93312; J2704; J7030

== ENCOUNTER 2020-03-16 16:19 | Emergency (ER) | payer MEDICARE, OTHER ==
[~2020-03-16] VITALS: Ht 190.5 cm; Wt 103.0 kg
[~2020-03-16 16:19] MED LIST changes: -ALEN70TA10 PO; -AMLO5TAB9 PO; -AMMO225L14 TP; +APIX5TAB PO; -ATOR20TA86 PO; +DOXY100C PO; -FURO40 PO; -LISI-662 PO; +LOSA25TA71 PO; -MESA0.37 PO; -MESA400C2 PO; -POLY238P2 PO; -TAMS-1 PO; -TEST100V11 IM; -TEST5GEL TD; -[UNRECOGNIZED DRUG - CODE] PR
[2020-03-16] MEDS ORDERED: CICL90CR11 TP (16:38)
[2020-03-16] MEDS ORDERED: TADA2.5T PO (16:38)
[2020-03-16] MEDS ORDERED: AMIO100T4 PO (16:38)
[2020-03-16] MEDS ORDERED: PRED5 PO (16:38)
[2020-03-16 17:48] LABS: BASOPHILS % (AUTO) 0.5 % (0.0-2.0); EOSINOPHILS % (AUTO) 0.3 % (1.0-6.0); HEMATOCRIT 37.9 % (41-53); HEMOGLOBIN 12.3 g/dL (13.5-17.5); LYMPHOCYTES # (AUTO) 1.4 K/uL (1.0-4.8); LYMPHOCYTES % (AUTO) 14.6 % (22.0-44.0); MEAN CORPUSCULAR HEMOGLOBIN 27.9 pg (26.0-34.0); MEAN CORPUSCULAR HGB CONC 32.4 G/dL (31.0-37.0); MEAN CORPUSCULAR VOLUME 86 fL (80-100); MONOCYTES # (AUTO) 0.7 K/uL (0.1-1.0); NEUTROPHILS # (AUTO) 7.3 K/uL (1.8-7.7); NEUTROPHILS % (AUTO) 77.6 % (40.0-70.0); PLATELET COUNT (AUTO) 135 K/uL (150-450); RED CELL DISTRIBUTION WIDTH 18.6 % (11.5-14.5)
[2020-03-16 18:13] LABS: CALCIUM, TOTAL 8.5 mg/dL (8.8-10.5); CREATININE 2.28 mg/dL (0.60-1.30); POTASSIUM 4.7 mmol/L (3.5-5.1)
[2020-03-16 18:18] LABS: ALBUMIN 3.4 g/dL (3.4-5.0); BILIRUBIN,TOTAL 0.6 mg/dL (0.1-1.0); TOTAL PROTEIN, SERUM 5.8 g/dL (6.4-8.2)
[2020-03-16 18:20] LABS: LACTIC ACID 0.9 mmol/L (0.4-2.0)
[2020-03-16 19:00] LABS: APPEARANCE,URINE CLEAR (CLEAR); BILIRUBIN,URINE NEGATIVE (NEGATIVE); GLUCOSE, URINE (UA) NEGATIVE (NEGATIVE); KETONES,URINE NEGATIVE (NEGATIVE); LEUKOCYTE ESTERASE ,URINE NEGATIVE (NEGATIVE); NITRATE,URINE NEGATIVE (NEGATIVE); OCCULT BLOOD,URINE NEGATIVE (NEGATIVE); PROTEIN,URINE TRACE (NEGATIVE); UROBILINOGEN,URINE 0.2 mg/dL (<=1.0)
[2020-03-16 19:08] LABS: BACTERIA,URINE Rare /HPF (None Seen); RBC,URINE None Seen /HPF (0-2); SQUAMOUS EPITHELIAL CELL,UR Rare /LPF (None Seen); WBC,URINE None Seen /HPF (0-5)
[2020-03-16] MEDS ORDERED: MethylPREDNISolone SOD SUCC 125 MG/2 ML VIAL IVP ONE (20:15)
[2020-03-16] MEDS ORDERED: HYDROmorphone 2 MG/ML SYRINGE IM ONE (20:15)
[2020-03-16] MEDS ORDERED: HYDROmorphone 2 MG/ML SYRINGE IVP ONE (21:45)
[2020-03-16 22:00] VITALS: BP 127/82
== END 2020-03-16 22:59 | disposition home or self-care (01) ==
LOC: EMS 16:19
DX: M16.12 Unilateral primary osteoarthritis, left hip (principal); I48.91 Unspecified atrial fibrillation; I10 Essential (primary) hypertension; E78.00 Pure hypercholesterolemia, unspecified; Z79.899 Other long term (current) drug therapy
CPT/HCPCS: 36415; 73700; 80053; 81001; 83605; 83880; 85025; 96372; 96374; 96375; 99285; J1170; J2930

== ENCOUNTER 2021-08-12 11:15 | Inpatient (IN) | payer MEDICARE, OTHER ==
[~2021-08-12] VITALS: Ht 175.3 cm; Wt 95.7 kg
[~2021-08-12 11:15] MED LIST changes: +AMIO100T4 PO; +CICL90CR11 TP; -DOXY100C PO; +LOSA25TA21 PO; -LOSA25TA71 PO; -METO25XL PO; +PRED5TAB2 PO; +TADA2.5T PO
[2021-08-12] MEDS ORDERED: SODIUM CHLORIDE 0.9% 100 ML ONE (11:45)
[2021-08-12] MEDS ORDERED: IOHEXOL 350 MG/ML 75 ML VIAL ONE (11:45)
[2021-08-12 12:34] LABS: BASOPHILS % (AUTO) 0.7 % (0.0-2.0); HEMATOCRIT 32.9 % (41-53); HEMOGLOBIN 10.7 g/dL (13.5-17.5); LYMPHOCYTES # (AUTO) 1.3 K/uL (1.0-4.8); LYMPHOCYTES % (AUTO) 17.1 % (22.0-44.0); MEAN CORPUSCULAR HEMOGLOBIN 27.2 pg (26.0-34.0); MEAN CORPUSCULAR HGB CONC 32.5 G/dL (31.0-37.0); MEAN CORPUSCULAR VOLUME 84 fL (80-100); MONOCYTES # (AUTO) 0.6 K/uL (0.1-1.0); MONOCYTES % (AUTO) 8.1 % (2.0-9.0); NEUTROPHILS # (AUTO) 4.9 K/uL (1.8-7.7); NEUTROPHILS % (AUTO) 67.1 % (40.0-70.0); PLATELET COUNT (AUTO) 125 K/uL (150-450); RED BLOOD CELL COUNT(AUTO) 3.94 MIL/uL (4.50-5.90); RED CELL DISTRIBUTION WIDTH 17.3 % (11.5-14.5)
[2021-08-12 12:46] LABS: CALCIUM, TOTAL 9.3 mg/dL (8.8-10.5); CREATININE 5.22 mg/dL (0.60-1.30); POTASSIUM 4.9 mmol/L (3.5-5.1)
[2021-08-12 12:48] LABS: INR 1.2 (0.9-1.1); PROTHROMBIN TIME 12.7 SEC (9.4-11.6)
[2021-08-12 12:52] LABS: BILIRUBIN,TOTAL 0.7 mg/dL (0.1-1.0); TOTAL PROTEIN, SERUM 6.3 g/dL (6.4-8.2)
[2021-08-12] MEDS ORDERED: ASPIRIN 300 MG RECTAL SUPPOSITORY PR ONE (13:30)
[2021-08-12] MEDS ORDERED: SODIUM CHLORIDE 0.9% 500 ML IV ONE ×2 (13:45→17:00)
[2021-08-12] MEDS ORDERED: 0.9% SODIUM CHLORIDE 10 ML SYRINGE IVP PRN ×2 (14:00→15:15)
[2021-08-12] MEDS ORDERED: ACETAMINOPHEN 325 MG TABLET PO PRN ×2 (14:00→15:15)
[2021-08-12] MEDS ORDERED: ONDANSETRON HCL 4 MG/2 ML VIAL IVP PRN (14:00)
[2021-08-12 14:22] LABS: FREE T4 (FREE THYROXINE) 1.08 ng/dL (0.76-1.46); THYROID STIMULATING HORMONE 1.17 uIU/mL (0.36-3.74)
[2021-08-12] MEDS ORDERED: TAMS-13 PO (15:14)
[2021-08-12] MEDS ORDERED: AMIO200T68 PO (15:14)
[2021-08-12] MEDS ORDERED: MESA1.2T3 PO (15:14)
[2021-08-12] MEDS ORDERED: TADA5TAB3 PO (15:14)
[2021-08-12] MEDS ORDERED: OXYC15TA2 PO (15:14)
[2021-08-12] MEDS ORDERED: BISACODYL 10 MG RECTAL RECTAL SUPPOSITORY PR PRN (15:15)
[2021-08-12] MEDS ORDERED: DOCUSATE SODIUM 100 MG CAPSULE PO PRN (15:15)
[2021-08-12] MEDS: PANTOPRAZOLE SODIUM 40 MG/VIAL IVP SCH (15:15)
[2021-08-12] MEDS ORDERED: ALBUTEROL SULFATE 2.5 MG/0.5 ML NEB SOLUTION NEB PRN (15:15)
[2021-08-12] MEDS ORDERED: IPRATROPIUM BROMIDE 0.5 MG/2.5 ML NEB SOLUTION NEB PRN (15:15)
[2021-08-12 15:59] LABS: ABG BASE EXCESS -2.1 mmol/L (-2.0-3.0); ABG CARBOXYHEMOGLOBIN 0.1 % (0.0-1.5); ABG HCO3 22.6 mmol/L (22.0-26.0); ABG METHEMOGLOBIN 0.2 % (0.0-1.5); ABG OXYGEN CONTENT 14.1 mL/dL (15.0-23.0); ABG OXYGEN SATURATION 94.1 % (95.0-98.0); ABG OXYHEMOGLOBIN 93.8 % (94.0-100.0); ABG PCO2 46 mmHg (35-45); ABG PH 7.331 (7.35-7.450); ABG TOTAL HEMOGLOBIN 10.6 G/dL (12.0-18.0); O2 DEVICE,BLOOD GAS ROOM AIR (ROOM AIR); PO2, ARTERIAL BG 76.4 mmHg (71.0-79.0); SITE, BLOOD GAS LFT RADIAL; SOURCE, BLOOD GAS ARTERIAL; TEMPERATURE, FAHRENHEIT, BG 98.6 FAHREN (96.0-98.6)
[2021-08-12 20:13] LABS: APPEARANCE,URINE CLEAR (CLEAR); BILIRUBIN,URINE NEGATIVE (NEGATIVE); GLUCOSE, URINE (UA) NEGATIVE (NEGATIVE); KETONES,URINE NEGATIVE (NEGATIVE); LEUKOCYTE ESTERASE ,URINE NEGATIVE (NEGATIVE); NITRATE,URINE NEGATIVE (NEGATIVE); OCCULT BLOOD,URINE SMALL (NEGATIVE); PROTEIN,URINE TRACE (NEGATIVE)
[2021-08-12 20:21] LABS: AMPHET/METH SCREEN,URINE NEGATIVE (NEGATIVE); BARBITURATE SCREEN, URINE NEGATIVE (NEGATIVE); BENZODIAZEPINES SCREEN,URINE NEGATIVE (NEGATIVE); CANNABINOID SCREEN,URINE NEGATIVE (NEGATIVE); COCAINE SCREEN,URINE NEGATIVE (NEGATIVE); METHADONE SCREEN, URINE NEGATIVE (NEGATIVE); OPIATE SCREEN,URINE NEGATIVE (NEGATIVE); PHENCYCLIDINE SCREEN,URINE NEGATIVE (NEGATIVE)
[2021-08-12 20:24] LABS: BACTERIA,URINE Few /HPF (None Seen); WBC,URINE 0-2 /HPF (0-5)
[2021-08-12] MEDS: AMIODARONE HCL 200 MG TABLET PO SCH (21:00)
[2021-08-12] MEDS ORDERED: [UNRECOGNIZED DRUG - OTHER] TP SCH (21:00)
[2021-08-12] MEDS: APIXABAN 5 MG TABLET PO SCH (21:30)
[2021-08-13 08:08] LABS: BASOPHILS % (AUTO) 0.8 % (0.0-2.0); EOSINOPHILS % (AUTO) 10.3 % (1.0-6.0); HEMATOCRIT 33.1 % (41-53); LYMPHOCYTES # (AUTO) 1.3 K/uL (1.0-4.8); LYMPHOCYTES % (AUTO) 16.3 % (22.0-44.0); MEAN CORPUSCULAR HEMOGLOBIN 27.5 pg (26.0-34.0); MEAN CORPUSCULAR HGB CONC 33.2 G/dL (31.0-37.0); MEAN CORPUSCULAR VOLUME 83 fL (80-100); MONOCYTES # (AUTO) 0.6 K/uL (0.1-1.0); MONOCYTES % (AUTO) 7.5 % (2.0-9.0); NEUTROPHILS # (AUTO) 5.3 K/uL (1.8-7.7); NEUTROPHILS % (AUTO) 65.1 % (40.0-70.0); PLATELET COUNT (AUTO) 142 K/uL (150-450); RED BLOOD CELL COUNT(AUTO) 3.98 MIL/uL (4.50-5.90); RED CELL DISTRIBUTION WIDTH 17.1 % (11.5-14.5)
[2021-08-13 08:24] LABS: ALBUMIN 2.9 g/dL (3.4-5.0); BILIRUBIN,TOTAL 0.7 mg/dL (0.1-1.0); CALCIUM, TOTAL 8.8 mg/dL (8.8-10.5); CHOL/HDL RATIO 5.2 (4.2-7.3); CREATININE 4.57 mg/dL (0.60-1.30); POTASSIUM 5.3 mmol/L (3.5-5.1); TOTAL PROTEIN, SERUM 6.4 g/dL (6.4-8.2)
[2021-08-13] MEDS: AMIODARONE HCL 200 MG TABLET PO SCH ×2 (09:00→21:00)
[2021-08-13] MEDS ORDERED: MESALAMINE PO SCH (09:00)
[2021-08-13 10:36] LABS: COVID AG,FIA SOURCE NASOPHARYNGEAL
[2021-08-13] MEDS: PredniSONE 10 MG TABLET PO SCH (10:58)
[2021-08-13] MEDS: APIXABAN 5 MG TABLET PO SCH (10:58)
[2021-08-13] MEDS: PANTOPRAZOLE SODIUM 40 MG/VIAL IVP SCH (10:58)
[2021-08-13] MEDS ORDERED: EPOETIN ALFA 10,000 UNITS/ML VIAL SQ ONE (12:45)
[2021-08-13] MEDS: SODIUM BICARBONATE 75 MEQ in SODIUM CHLORIDE 0.45% 1,000 ML IV SCH (13:18)
[2021-08-13 17:44] VITALS: BP 123/73
[2021-08-13 19:29] VITALS: BP 107/71
[2021-08-13] MEDS: APIXABAN 2.5 MG TABLET PO SCH (21:21)
[2021-08-13] MEDS: TAMSULOSIN HCL 0.4 MG CAPSULE PO SCH (21:21)
[2021-08-13 22:15] VITALS: BP 116/66
[2021-08-13 23:05] VITALS: BP 103/61
[2021-08-14 04:07] VITALS: BP 114/72
[2021-08-14] MEDS: SODIUM BICARBONATE 75 MEQ in SODIUM CHLORIDE 0.45% 1,000 ML IV SCH ×2 (04:18→22:05)
[2021-08-14 07:05] LABS: EOSINOPHILS % (AUTO) 1.8 % (1.0-6.0); HEMATOCRIT 30.8 % (41-53); HEMOGLOBIN 10.3 g/dL (13.5-17.5); LYMPHOCYTES # (AUTO) 1.4 K/uL (1.0-4.8); LYMPHOCYTES % (AUTO) 22.7 % (22.0-44.0); MEAN CORPUSCULAR HEMOGLOBIN 27.7 pg (26.0-34.0); MEAN CORPUSCULAR HGB CONC 33.5 G/dL (31.0-37.0); MEAN CORPUSCULAR VOLUME 83 fL (80-100); MONOCYTES # (AUTO) 0.4 K/uL (0.1-1.0); MONOCYTES % (AUTO) 6.2 % (2.0-9.0); NEUTROPHILS # (AUTO) 4.3 K/uL (1.8-7.7); NEUTROPHILS % (AUTO) 68.3 % (40.0-70.0); PLATELET COUNT (AUTO) 145 K/uL (150-450); RED BLOOD CELL COUNT(AUTO) 3.73 MIL/uL (4.50-5.90); RED CELL DISTRIBUTION WIDTH 17.3 % (11.5-14.5)
[2021-08-14 07:54] LABS: ALBUMIN 2.8 g/dL (3.4-5.0); BILIRUBIN,TOTAL 0.6 mg/dL (0.1-1.0); CALCIUM, TOTAL 8.8 mg/dL (8.8-10.5); CREATININE 3.93 mg/dL (0.60-1.30); POTASSIUM 5.1 mmol/L (3.5-5.1); THYROID STIMULATING HORMONE 0.93 uIU/mL (0.36-3.74); TOTAL PROTEIN, SERUM 6.2 g/dL (6.4-8.2)
[2021-08-14 08:24] VITALS: BP 108/64
[2021-08-14] MEDS: AMIODARONE HCL 200 MG TABLET PO SCH ×2 (08:35→22:04)
[2021-08-14] MEDS: PANTOPRAZOLE SODIUM 40 MG/VIAL IVP SCH (08:36)
[2021-08-14] MEDS: APIXABAN 2.5 MG TABLET PO SCH ×2 (08:37→22:04)
[2021-08-14] MEDS: PredniSONE 10 MG TABLET PO SCH (08:37)
[2021-08-14 12:03] VITALS: BP 115/67
[2021-08-14] MEDS: ONDANSETRON HCL 4 MG/2 ML VIAL IVP PRN (16:08)
[2021-08-14 16:58] VITALS: BP 108/68
[2021-08-14 19:49] VITALS: BP 102/57
[2021-08-14] MEDS: TAMSULOSIN HCL 0.4 MG CAPSULE PO SCH (22:04)
[2021-08-14 23:44] VITALS: BP 103/57
[2021-08-15] VITALS: BP 103/57
[2021-08-15 04:40] VITALS: BP 112/60
[2021-08-15 06:47] LABS: BASOPHILS % (AUTO) 0.8 % (0.0-2.0); EOSINOPHILS % (AUTO) 1.3 % (1.0-6.0); HEMATOCRIT 28.5 % (41-53); HEMOGLOBIN 9.6 g/dL (13.5-17.5); LYMPHOCYTES # (AUTO) 1.6 K/uL (1.0-4.8); LYMPHOCYTES % (AUTO) 21.5 % (22.0-44.0); MEAN CORPUSCULAR HEMOGLOBIN 27.5 pg (26.0-34.0); MEAN CORPUSCULAR HGB CONC 33.5 G/dL (31.0-37.0); MEAN CORPUSCULAR VOLUME 82 fL (80-100); MONOCYTES # (AUTO) 0.5 K/uL (0.1-1.0); MONOCYTES % (AUTO) 6.7 % (2.0-9.0); NEUTROPHILS # (AUTO) 5.2 K/uL (1.8-7.7); NEUTROPHILS % (AUTO) 69.7 % (40.0-70.0); PLATELET COUNT (AUTO) 143 K/uL (150-450); RED BLOOD CELL COUNT(AUTO) 3.47 MIL/uL (4.50-5.90); RED CELL DISTRIBUTION WIDTH 16.8 % (11.5-14.5)
[2021-08-15 07:03] LABS: ALBUMIN 2.8 g/dL (3.4-5.0); BILIRUBIN,TOTAL 0.4 mg/dL (0.1-1.0); CALCIUM, TOTAL 8.3 mg/dL (8.8-10.5); CREATININE 3.51 mg/dL (0.60-1.30); POTASSIUM 4.2 mmol/L (3.5-5.1)
[2021-08-15 07:19] VITALS: BP 105/62
[2021-08-15] MEDS: PANTOPRAZOLE SODIUM 40 MG/VIAL IVP SCH (07:45)
[2021-08-15] MEDS: PredniSONE 10 MG TABLET PO SCH (07:46)
[2021-08-15] MEDS: APIXABAN 2.5 MG TABLET PO SCH ×2 (07:46→20:45)
[2021-08-15] MEDS: AMIODARONE HCL 200 MG TABLET PO SCH ×2 (07:46→20:44)
[2021-08-15] MEDS: SODIUM BICARBONATE 75 MEQ in SODIUM CHLORIDE 0.45% 1,000 ML IV SCH (10:02)
[2021-08-15 11:13] VITALS: BP 117/78
[2021-08-15] MEDS: ONDANSETRON HCL 4 MG/2 ML VIAL IVP PRN (13:47)
[2021-08-15] MEDS: OxyCODONE HCL 5 MG IR TABLET PO PRN ×2 (13:47→23:01)
[2021-08-15 15:00] VITALS: BP 114/67
[2021-08-15 20:00] VITALS: BP 108/69
[2021-08-15] MEDS: TAMSULOSIN HCL 0.4 MG CAPSULE PO SCH (20:44)
[2021-08-15] MEDS ORDERED: MELATONIN 3 MG TABLET PO PRN (23:30)
[2021-08-16 00:02] VITALS: BP 126/77
[2021-08-16] MEDS: SODIUM BICARBONATE 75 MEQ in SODIUM CHLORIDE 0.45% 1,000 ML IV SCH (01:13)
[2021-08-16 03:50] VITALS: BP 109/66
[2021-08-16] MEDS: OxyCODONE HCL 5 MG IR TABLET PO PRN (07:34)
[2021-08-16] MEDS ORDERED: COSYNTROPIN 0.25 MG VIAL IVP ONE (08:00)
[2021-08-16] MEDS: PANTOPRAZOLE SODIUM 40 MG/VIAL IVP SCH (08:13)
[2021-08-16] MEDS: APIXABAN 2.5 MG TABLET PO SCH (08:14)
[2021-08-16] MEDS: PredniSONE 10 MG TABLET PO SCH (08:14)
[2021-08-16] MEDS: AMIODARONE HCL 200 MG TABLET PO SCH (08:19)
[2021-08-16 08:21] VITALS: BP 105/64
[2021-08-16 10:23] LABS: EOSINOPHILS % (AUTO) 2.7 % (1.0-6.0); HEMATOCRIT 28.4 % (41-53); HEMOGLOBIN 9.3 g/dL (13.5-17.5); LYMPHOCYTES # (AUTO) 1.6 K/uL (1.0-4.8); LYMPHOCYTES % (AUTO) 25.2 % (22.0-44.0); MEAN CORPUSCULAR HEMOGLOBIN 27.6 pg (26.0-34.0); MEAN CORPUSCULAR HGB CONC 32.9 G/dL (31.0-37.0); MEAN CORPUSCULAR VOLUME 84 fL (80-100); MONOCYTES # (AUTO) 0.6 K/uL (0.1-1.0); MONOCYTES % (AUTO) 8.9 % (2.0-9.0); NEUTROPHILS # (AUTO) 3.9 K/uL (1.8-7.7); NEUTROPHILS % (AUTO) 62.2 % (40.0-70.0); PLATELET COUNT (AUTO) 144 K/uL (150-450); RED BLOOD CELL COUNT(AUTO) 3.38 MIL/uL (4.50-5.90); RED CELL DISTRIBUTION WIDTH 17.4 % (11.5-14.5)
[2021-08-16 10:38] LABS: ALBUMIN 2.8 g/dL (3.4-5.0); BILIRUBIN,TOTAL 0.4 mg/dL (0.1-1.0); C-REACTIVE PROTEIN QUANT 2.11 mg/dL (0.00-0.30); CALCIUM, TOTAL 8.5 mg/dL (8.8-10.5); CREATININE 3.32 mg/dL (0.60-1.30); MAGNESIUM 2.4 mg/dL (1.80-2.40); TOTAL PROTEIN, SERUM 5.8 g/dL (6.4-8.2)
[2021-08-16 11:23] LABS: ERYTHROCYTE SEDIMENTATION RATE 21 MM/HR (0-15)
[2021-08-16 12:42] VITALS: BP 115/70
[2021-08-17 12:06] LABS: CORTISOL Baseline 6.9 ug/dL; CORTISOL STIMULATED,ACTH Note: ug/dL (Not Estab.)
== END 2021-08-16 15:15 | DRG 682 ==
LOC: EMS 11:17 → ICUN 18:11 → UNDOADMIN 18:11 → 5S 18:11
PROVIDERS: ADMIT Internal Medicine; ATTEND Internal Medicine
DX: N17.9 Acute kidney failure, unspecified (principal); G92 Toxic encephalopathy; N18.4 Chronic kidney disease, stage 4 (severe); I13.10 Hypertensive heart and chronic kidney disease without heart failure, with stage 1 through stage 4 chronic kidney disease, or unspecified chronic kidney disease; D63.1 Anemia in chronic kidney disease; I48.91 Unspecified atrial fibrillation; D69.6 Thrombocytopenia, unspecified; N40.0 Benign prostatic hyperplasia without lower urinary tract symptoms; Z20.822 Contact with and (suspected) exposure to COVID-19; E78.00 Pure hypercholesterolemia, unspecified; E78.5 Hyperlipidemia, unspecified; R31.9 Hematuria, unspecified; H26.9 Unspecified cataract; I95.1 Orthostatic hypotension; M16.11 Unilateral primary osteoarthritis, right hip; Z96.649 Presence of unspecified artificial hip joint; E87.5 Hyperkalemia; Z95.0 Presence of cardiac pacemaker; Z79.01 Long term (current) use of anticoagulants; Z79.891 Long term (current) use of opiate analgesic; Z88.7 Allergy status to serum and vaccine
CPT/HCPCS: 36600; 70496; 71045; 76770; 80053; 80061; 81001; 82024; 82533; 82550; 82805; 83735; 83880; 84145; 84439; 84443; 84484; 85025; 85610; 85651; 85730; 86140; 86850; 86900; 86901; 87040; 92521; 93005; 93306; 93971; 94640; 97110; 97163; 97166; 97530; 97535; 99291; C9113; G0378; J0834; J0885; J2405; J3490; J7050; Q9967; 36415-L1; 36415-TC; 70450; 70450-TC; J7512; Z7610

== ENCOUNTER 2021-08-21 20:44 | Inpatient (IN) | payer MEDICARE, OTHER ==
[~2021-08-21] VITALS: Ht 182.9 cm; Wt 99.0 kg
[~2021-08-21 20:44] MED LIST changes: -AMIO100T4 PO; +AMIO200T68 PO; -LOSA25TA21 PO; +MESA1.2T3 PO; -OXYC10TA59 PO; +OXYC15TA2 PO; -PRED5TAB2 PO; -TADA2.5T PO; +TADA5TAB3 PO; +TAMS-13 PO
[2021-08-21] MEDS ORDERED: SODIUM CHLORIDE 0.9% 2,700 ML IV ONE (22:45)
[2021-08-21] MEDS ORDERED: ACETAMINOPHEN 500 MG TABLET PO ONE (22:45)
[2021-08-21] MEDS ORDERED: ONDANSETRON HCL 4 MG/2 ML VIAL IVP ONE (22:45)
[2021-08-21] MEDS ORDERED: 0.9% SODIUM CHLORIDE 10 ML SYRINGE IVP PRN (22:45)
[2021-08-21 23:17] LABS: COVID AG,FIA SOURCE NASOPHARYNGEAL
[2021-08-21 23:19] LABS: BASOPHILS % (AUTO) 0.2 % (0.0-2.0); EOSINOPHILS % (AUTO) 0 % (1.0-6.0); HEMATOCRIT 32.3 % (41-53); HEMOGLOBIN 10.2 g/dL (13.5-17.5); LYMPHOCYTES # (AUTO) 0.5 K/uL (1.0-4.8); LYMPHOCYTES % (AUTO) 2.4 % (22.0-44.0); MEAN CORPUSCULAR HEMOGLOBIN 26.6 pg (26.0-34.0); MEAN CORPUSCULAR HGB CONC 31.6 G/dL (31.0-37.0); MEAN CORPUSCULAR VOLUME 84 fL (80-100); MONOCYTES # (AUTO) 1.3 K/uL (0.1-1.0); MONOCYTES % (AUTO) 5.9 % (2.0-9.0); NEUTROPHILS # (AUTO) 20.4 K/uL (1.8-7.7); PLATELET COUNT (AUTO) 158 K/uL (150-450); RED BLOOD CELL COUNT(AUTO) 3.84 MIL/uL (4.50-5.90); RED CELL DISTRIBUTION WIDTH 17.7 % (11.5-14.5)
[2021-08-21 23:26] LABS: NEUTROPHILS % (AUTO) 91.5 % (40.0-70.0)
[2021-08-21] MEDS ORDERED: PIPERACILLIN/TAZO 3.375 GM/D5W 50 ML IV ONE (23:30)
[2021-08-21 23:31] LABS: APPEARANCE,URINE CLOUDY (CLEAR); BILIRUBIN,URINE NEGATIVE (NEGATIVE); GLUCOSE, URINE (UA) NEGATIVE (NEGATIVE); KETONES,URINE TRACE mg/dL (NEGATIVE); LEUKOCYTE ESTERASE ,URINE MODERATE (NEGATIVE); NITRATE,URINE NEGATIVE (NEGATIVE); OCCULT BLOOD,URINE MODERATE (NEGATIVE); PROTEIN,URINE SEE CONFIRM (NEGATIVE)
[2021-08-21 23:36] LABS: INR 1.4 (0.9-1.1); PROTHROMBIN TIME 14.3 SEC (9.4-11.6)
[2021-08-21 23:41] LABS: SULFOSALICYLIC ACID,URINE 3+ (Negative)
[2021-08-21 23:42] LABS: B-TYPE NATRIURETIC PEPTIDE 399 pg/mL (0-100)
[2021-08-21 23:48] LABS: ANION GAP 6 mmol/L (8-16); CALCIUM, TOTAL 8.2 mg/dL (8.8-10.5); CARBON DIOXIDE 26 mmol/L (22-29); CHLORIDE 102 mmol/L (98-107); CREATININE 3.95 mg/dL (0.60-1.30); GLOMERULAR FILTR. RATE CALC 15 mL/min (>60); GLUCOSE,RANDOM 147 mg/dL (70-110); POTASSIUM 4.7 mmol/L (3.5-5.1); SODIUM SERUM 134 mmol/L (136-145); UREA NITROGEN, BLOOD 52 mg/dL (7-18)
[2021-08-21 23:55] LABS: ALANINE AMINOTRANSFERASE 14 U/L (12-78); ALBUMIN 2.9 g/dL (3.4-5.0); ALKALINE PHOSPHATASE 68 U/L (46-116); ASPARTATE AMINOTRANSFERASE 15 U/L (15-37); BILIRUBIN,TOTAL 0.8 mg/dL (0.1-1.0); TOTAL PROTEIN, SERUM 6.3 g/dL (6.4-8.2)
[2021-08-21 23:57] LABS: BACTERIA,URINE Moderate /HPF (None Seen); WBC,URINE 51-100 /HPF (0-5)
[2021-08-22] MEDS ORDERED: VANCOMYCIN HCL 1 GM/D5% WATER 200 ML IV ONE
[2021-08-22] MEDS ORDERED: ONDANSETRON HCL 4 MG/2 ML VIAL IVP PRN (00:15)
[2021-08-22 00:16] LABS: LACTIC ACID 2.6 mmol/L (0.4-2.0)
[2021-08-22] MEDS ORDERED: SODIUM CHLORIDE 0.9% 1,000 ML IV ONE (03:00)
[2021-08-22] MEDS ORDERED: BISACODYL 10 MG RECTAL RECTAL SUPPOSITORY PR PRN (07:45)
[2021-08-22] MEDS ORDERED: PIPERACILLIN SODIUM/TAZOBACTAM 2.25 GM in DEXTROSE 5%-WATER 50 ML IV ONE (08:00)
[2021-08-22] MEDS: CefTRIAXone 1 GM/DEXTROSE 50 ML IV SCH (08:30)
[2021-08-22] MEDS: FAMOTIDINE 20 MG TABLET PO SCH (08:50)
[2021-08-22] MEDS: APIXABAN 2.5 MG TABLET PO SCH ×2 (08:57→21:35)
[2021-08-22] MEDS: AMIODARONE HCL 200 MG TABLET PO SCH (08:57)
[2021-08-22] MEDS: OxyCODONE HCL 10 MG ER TABLET PO PRN ×2 (08:57→21:35)
[2021-08-22] MEDS ORDERED: HEPARIN SODIUM,PORCINE 5,000 UNITS/ML VIAL SQ SCH (09:00)
[2021-08-22] MEDS: ONDANSETRON HCL 4 MG/2 ML VIAL IVP PRN ×2 (09:07→20:09)
[2021-08-22] MEDS: ATORVASTATIN CALCIUM 20 MG TABLET PO SCH (20:08)
[2021-08-22 22:36] VITALS: BP 122/73
[2021-08-23 04:11] VITALS: BP 104/66
[2021-08-23 07:32] VITALS: BP 99/60
[2021-08-23] MEDS ORDERED: SODIUM CHLORIDE 0.9% 250 ML IV ONE (08:07)
[2021-08-23] MEDS: APIXABAN 2.5 MG TABLET PO SCH ×2 (08:22→20:05)
[2021-08-23] MEDS: FAMOTIDINE 20 MG TABLET PO SCH (08:22)
[2021-08-23] MEDS: CefTRIAXone 1 GM/DEXTROSE 50 ML IV SCH (08:23)
[2021-08-23 08:48] LABS: BASOPHILS % (AUTO) 0.3 % (0.0-2.0); EOSINOPHILS % (AUTO) 0.4 % (1.0-6.0); HEMATOCRIT 30.3 % (41-53); HEMOGLOBIN 9.5 g/dL (13.5-17.5); MEAN CORPUSCULAR HEMOGLOBIN 26.7 pg (26.0-34.0); MEAN CORPUSCULAR HGB CONC 31.2 G/dL (31.0-37.0); MEAN CORPUSCULAR VOLUME 85 fL (80-100); MONOCYTES # (AUTO) 1.1 K/uL (0.1-1.0); MONOCYTES % (AUTO) 8.1 % (2.0-9.0); NEUTROPHILS # (AUTO) 11.6 K/uL (1.8-7.7); NEUTROPHILS % (AUTO) 84.2 % (40.0-70.0); PLATELET COUNT (AUTO) 103 K/uL (150-450); RED BLOOD CELL COUNT(AUTO) 3.55 MIL/uL (4.50-5.90); RED CELL DISTRIBUTION WIDTH 17.8 % (11.5-14.5)
[2021-08-23 08:59] LABS: CREATININE 3.34 mg/dL (0.60-1.30); POTASSIUM 4.8 mmol/L (3.5-5.1)
[2021-08-23 09:00] LABS: CALCIUM, TOTAL 7.4 mg/dL (8.8-10.5)
[2021-08-23 09:06] VITALS: BP 104/64
[2021-08-23] MEDS: OxyCODONE HCL 10 MG ER TABLET PO PRN ×2 (09:17→17:19)
[2021-08-23] MEDS ORDERED: SODIUM CHLORIDE 0.45% 1,000 ML IV SCH (11:15)
[2021-08-23] MEDS ORDERED: SODIUM CHLORIDE 0.9% 1,000 ML IV ONE (11:15)
[2021-08-23 11:33] VITALS: BP 101/62
[2021-08-23] MEDS: ONDANSETRON HCL 4 MG/2 ML VIAL IVP PRN (12:42)
[2021-08-23] MEDS ORDERED: VANCOMYCIN HCL 1.25 GM in DEXTROSE 5%-WATER 250 ML IV ONE (14:00)
[2021-08-23] MEDS ORDERED: VANCOMYCIN HCL 1 GM/D5% WATER 200 ML IV PRN (14:00)
[2021-08-23] MEDS: AMIODARONE HCL 200 MG TABLET PO SCH (14:59)
[2021-08-23 15:43] VITALS: BP 113/58
[2021-08-23 19:40] VITALS: BP 103/61
[2021-08-23] MEDS: ATORVASTATIN CALCIUM 20 MG TABLET PO SCH (20:05)
[2021-08-24] VITALS (7 sets, daily range): BP systolic 105–127; BP diastolic 57–76
[2021-08-24] MEDS: OxyCODONE HCL 10 MG ER TABLET PO PRN ×2 (04:50→15:45)
[2021-08-24 08:01] LABS: BASOPHILS % (AUTO) 0.5 % (0.0-2.0); EOSINOPHILS % (AUTO) 0.3 % (1.0-6.0); HEMATOCRIT 31.7 % (41-53); HEMOGLOBIN 9.8 g/dL (13.5-17.5); LYMPHOCYTES # (AUTO) 1.3 K/uL (1.0-4.8); MEAN CORPUSCULAR HEMOGLOBIN 26.5 pg (26.0-34.0); MEAN CORPUSCULAR HGB CONC 30.9 G/dL (31.0-37.0); MEAN CORPUSCULAR VOLUME 86 fL (80-100); MONOCYTES # (AUTO) 1.4 K/uL (0.1-1.0); MONOCYTES % (AUTO) 9.9 % (2.0-9.0); NEUTROPHILS # (AUTO) 11.5 K/uL (1.8-7.7); NEUTROPHILS % (AUTO) 80.3 % (40.0-70.0); PLATELET COUNT (AUTO) 95 K/uL (150-450); RED CELL DISTRIBUTION WIDTH 17.9 % (11.5-14.5)
[2021-08-24] MEDS: APIXABAN 2.5 MG TABLET PO SCH ×2 (08:25→20:05)
[2021-08-24] MEDS: AMIODARONE HCL 200 MG TABLET PO SCH (08:25)
[2021-08-24] MEDS: FAMOTIDINE 20 MG TABLET PO SCH (08:25)
[2021-08-24 08:45] LABS: CALCIUM, TOTAL 7.5 mg/dL (8.8-10.5); CREATININE 3.11 mg/dL (0.60-1.30); POTASSIUM 4.9 mmol/L (3.5-5.1); VANCOMYCIN,RANDOM 14.2 mcg/mL (25.0-50.0)
[2021-08-24] MEDS: CefTRIAXone 1 GM/DEXTROSE 50 ML IV SCH (09:24)
[2021-08-24] MEDS ORDERED: SODIUM CHLORIDE 0.9% 500 ML IV ONE (09:25)
[2021-08-24] MEDS ORDERED: VANCOMYCIN HCL 1 GM/D5% WATER 200 ML IV ONE (12:00)
[2021-08-24] MEDS: ATORVASTATIN CALCIUM 20 MG TABLET PO SCH (20:05)
[2021-08-25 03:35] VITALS: BP 120/71
[2021-08-25 06:35] LABS: CALCIUM, TOTAL 7.8 mg/dL (8.8-10.5); CREATININE 2.89 mg/dL (0.60-1.30); POTASSIUM 4.2 mmol/L (3.5-5.1); VANCOMYCIN,RANDOM 18.2 mcg/mL (25.0-50.0)
[2021-08-25] MEDS ORDERED: VANCOMYCIN HCL 1 GM/D5% WATER 200 ML IV ONE (09:00)
[2021-08-25] MEDS: FAMOTIDINE 20 MG TABLET PO SCH (09:18)
[2021-08-25] MEDS: AMIODARONE HCL 200 MG TABLET PO SCH (09:18)
[2021-08-25] MEDS: APIXABAN 2.5 MG TABLET PO SCH ×2 (09:18→19:56)
[2021-08-25 09:36] VITALS: BP 130/65
[2021-08-25] MEDS: NYSTATIN 500,000 UNITS/5 ML SUSPENSION UDCUP PO SCH ×3 (11:15→23:46)
[2021-08-25 12:25] VITALS: BP 115/65
[2021-08-25] MEDS: OxyCODONE HCL 10 MG ER TABLET PO PRN (12:38)
[2021-08-25 12:39] LABS: GLUCOMETER DEV NAME(LOC) 5N.3; GLUCOSE,POINT OF CARE 124 MG/DL (70-110)
[2021-08-25 16:38] VITALS: BP 121/62
[2021-08-25] MEDS: ATORVASTATIN CALCIUM 20 MG TABLET PO SCH (19:56)
[2021-08-25 20:40] VITALS: BP 128/62
[2021-08-26 00:51] VITALS: BP 123/62
[2021-08-26 04:43] VITALS: BP 126/68
[2021-08-26 07:32] LABS: CALCIUM, TOTAL 7.9 mg/dL (8.8-10.5); CREATININE 2.61 mg/dL (0.60-1.30)
[2021-08-26 07:48] VITALS: BP 136/67
[2021-08-26] MEDS: OxyCODONE HCL 10 MG ER TABLET PO PRN (07:48)
[2021-08-26] MEDS: FAMOTIDINE 20 MG TABLET PO SCH (08:10)
[2021-08-26] MEDS: AMIODARONE HCL 200 MG TABLET PO SCH (08:10)
[2021-08-26] MEDS: NYSTATIN 500,000 UNITS/5 ML SUSPENSION UDCUP PO SCH ×3 (08:10→23:44)
[2021-08-26] MEDS: APIXABAN 2.5 MG TABLET PO SCH ×2 (08:10→20:31)
[2021-08-26] MEDS: VANCOMYCIN HCL 1.25 GM in DEXTROSE 5%-WATER 250 ML IV SCH (08:18)
[2021-08-26 11:40] VITALS: BP 135/72
[2021-08-26 13:08] LABS: BASOPHILS % (AUTO) 1.1 % (0.0-2.0); EOSINOPHILS % (AUTO) 1.3 % (1.0-6.0); HEMATOCRIT 32.4 % (41-53); HEMOGLOBIN 10.1 g/dL (13.5-17.5); LYMPHOCYTES # (AUTO) 1.3 K/uL (1.0-4.8); LYMPHOCYTES % (AUTO) 8.3 % (22.0-44.0); MEAN CORPUSCULAR HGB CONC 31.2 G/dL (31.0-37.0); MEAN CORPUSCULAR VOLUME 83 fL (80-100); MONOCYTES # (AUTO) 0.9 K/uL (0.1-1.0); MONOCYTES % (AUTO) 5.9 % (2.0-9.0); NEUTROPHILS # (AUTO) 13.3 K/uL (1.8-7.7); NEUTROPHILS % (AUTO) 83.4 % (40.0-70.0); PLATELET COUNT (AUTO) 103 K/uL (150-450); RED CELL DISTRIBUTION WIDTH 18.1 % (11.5-14.5)
[2021-08-26] MEDS ORDERED: OxyCODONE HCL 10 MG ER TABLET PO PRN (15:45)
[2021-08-26 15:47] VITALS: BP 124/66
[2021-08-26 19:34] VITALS: BP 144/86
[2021-08-26] MEDS: ATORVASTATIN CALCIUM 20 MG TABLET PO SCH (20:31)
[2021-08-26] MEDS: OxyCODONE HCL 5 MG IR TABLET PO PRN (22:13)
[2021-08-27 04:48] VITALS: BP 141/79
[2021-08-27 06:32] LABS: CREATININE 2.41 mg/dL (0.60-1.30); POTASSIUM 4.1 mmol/L (3.5-5.1)
[2021-08-27 09:29] LABS: BASOPHILS % (AUTO) 0.9 % (0.0-2.0); EOSINOPHILS % (AUTO) 2.1 % (1.0-6.0); HEMATOCRIT 32.6 % (41-53); HEMOGLOBIN 10.6 g/dL (13.5-17.5); LYMPHOCYTES # (AUTO) 1.1 K/uL (1.0-4.8); LYMPHOCYTES % (AUTO) 9.4 % (22.0-44.0); MEAN CORPUSCULAR HEMOGLOBIN 26.5 pg (26.0-34.0); MEAN CORPUSCULAR HGB CONC 32.4 G/dL (31.0-37.0); MEAN CORPUSCULAR VOLUME 82 fL (80-100); MONOCYTES # (AUTO) 0.7 K/uL (0.1-1.0); MONOCYTES % (AUTO) 5.8 % (2.0-9.0); NEUTROPHILS # (AUTO) 9.5 K/uL (1.8-7.7); NEUTROPHILS % (AUTO) 81.8 % (40.0-70.0); PLATELET COUNT (AUTO) 119 K/uL (150-450); RED BLOOD CELL COUNT(AUTO) 3.98 MIL/uL (4.50-5.90); RED CELL DISTRIBUTION WIDTH 17.6 % (11.5-14.5)
[2021-08-27 09:57] VITALS: BP 138/78
[2021-08-27] MEDS: APIXABAN 2.5 MG TABLET PO SCH ×2 (10:19→19:48)
[2021-08-27] MEDS: NYSTATIN 500,000 UNITS/5 ML SUSPENSION UDCUP PO SCH ×2 (10:19→17:06)
[2021-08-27] MEDS: FAMOTIDINE 20 MG TABLET PO SCH (10:19)
[2021-08-27] MEDS: AMIODARONE HCL 200 MG TABLET PO SCH (10:19)
[2021-08-27 11:00] VITALS: BP 129/66
[2021-08-27] MEDS: MEGESTROL ACETATE 400 MG/10 ML SUSPENSION UDCUP PO SCH (12:26)
[2021-08-27] MEDS: OxyCODONE HCL 5 MG IR TABLET PO PRN (14:37)
[2021-08-27 15:00] VITALS: BP 122/72
[2021-08-27] MEDS: ATORVASTATIN CALCIUM 20 MG TABLET PO SCH (19:48)
[2021-08-27 20:11] VITALS: BP 133/73
[2021-08-27 23:45] VITALS: BP 136/74
[2021-08-28] VITALS (7 sets, daily range): BP systolic 125–151; BP diastolic 62–79
[2021-08-28 05:49] LABS: CALCIUM, TOTAL 8.2 mg/dL (8.8-10.5); CREATININE 2.25 mg/dL (0.60-1.30); POTASSIUM 3.9 mmol/L (3.5-5.1)
[2021-08-28] MEDS: OxyCODONE HCL 5 MG IR TABLET PO PRN ×2 (06:45→13:52)
[2021-08-28] MEDS: APIXABAN 2.5 MG TABLET PO SCH ×2 (08:45→20:50)
[2021-08-28] MEDS: FAMOTIDINE 20 MG TABLET PO SCH (08:45)
[2021-08-28] MEDS: NYSTATIN 500,000 UNITS/5 ML SUSPENSION UDCUP PO SCH ×4 (08:45→23:57)
[2021-08-28] MEDS: VANCOMYCIN HCL 1.25 GM in DEXTROSE 5%-WATER 250 ML IV SCH (08:45)
[2021-08-28] MEDS: MEGESTROL ACETATE 400 MG/10 ML SUSPENSION UDCUP PO SCH (08:45)
[2021-08-28] MEDS: AMIODARONE HCL 200 MG TABLET PO SCH (08:45)
[2021-08-28 19:14] LABS: GLUCOMETER DEV NAME(LOC) 5S.1; GLUCOSE,POINT OF CARE 116 MG/DL (70-110)
[2021-08-28] MEDS: ATORVASTATIN CALCIUM 20 MG TABLET PO SCH (20:50)
[2021-08-29] MEDS: OxyCODONE HCL 5 MG IR TABLET PO PRN (01:50)
[2021-08-29 04:35] VITALS: BP 124/78
[2021-08-29 06:15] LABS: BASOPHILS % (AUTO) 0.7 % (0.0-2.0); EOSINOPHILS % (AUTO) 2.2 % (1.0-6.0); HEMOGLOBIN 11.7 g/dL (13.5-17.5); LYMPHOCYTES # (AUTO) 1.1 K/uL (1.0-4.8); LYMPHOCYTES % (AUTO) 9.4 % (22.0-44.0); MEAN CORPUSCULAR HEMOGLOBIN 26.2 pg (26.0-34.0); MEAN CORPUSCULAR HGB CONC 32.4 G/dL (31.0-37.0); MEAN CORPUSCULAR VOLUME 81 fL (80-100); MONOCYTES # (AUTO) 0.6 K/uL (0.1-1.0); MONOCYTES % (AUTO) 4.9 % (2.0-9.0); NEUTROPHILS % (AUTO) 82.8 % (40.0-70.0); PLATELET COUNT (AUTO) 151 K/uL (150-450); RED BLOOD CELL COUNT(AUTO) 4.45 MIL/uL (4.50-5.90); RED CELL DISTRIBUTION WIDTH 17.2 % (11.5-14.5)
[2021-08-29 06:34] LABS: CALCIUM, TOTAL 8.1 mg/dL (8.8-10.5); CREATININE 2.07 mg/dL (0.60-1.30); POTASSIUM 3.6 mmol/L (3.5-5.1)
[2021-08-29 07:59] VITALS: BP 124/80
[2021-08-29] MEDS: AMIODARONE HCL 200 MG TABLET PO SCH (08:47)
[2021-08-29] MEDS: APIXABAN 2.5 MG TABLET PO SCH ×2 (08:47→21:00)
[2021-08-29] MEDS: MEGESTROL ACETATE 400 MG/10 ML SUSPENSION UDCUP PO SCH (08:47)
[2021-08-29] MEDS: NYSTATIN 500,000 UNITS/5 ML SUSPENSION UDCUP PO SCH ×2 (08:47→17:08)
[2021-08-29] MEDS: FAMOTIDINE 20 MG TABLET PO SCH (08:47)
[2021-08-29] MEDS ORDERED: CefTAZidime PENTAHYDRATE 2 GM in DEXTROSE 5%-WATER 50 ML IV SCH (10:00)
[2021-08-29] MEDS: LEVOFLOXACIN 750 MG/D5% WATER 150 ML IV SCH (11:10)
[2021-08-29 11:30] VITALS: BP 130/74
[2021-08-29] MEDS ORDERED: LORazepam 2 MG/ML VIAL IVP ONE (13:15)
[2021-08-29 16:18] VITALS: BP 105/60
[2021-08-29 19:51] VITALS: BP 105/64
[2021-08-29] MEDS: ATORVASTATIN CALCIUM 20 MG TABLET PO SCH (21:00)
[2021-08-30 00:03] VITALS: BP 149/69
[2021-08-30 04:43] VITALS: BP_SYST 132; BP_SYST 32; BP_DIAS 50
[2021-08-30 07:28] VITALS: BP 130/77
[2021-08-30] MEDS: NYSTATIN 500,000 UNITS/5 ML SUSPENSION UDCUP PO SCH ×3 (08:00→15:52)
[2021-08-30 08:16] LABS: CALCIUM, TOTAL 7.9 mg/dL (8.8-10.5); CREATININE 2.29 mg/dL (0.60-1.30); POTASSIUM 3.7 mmol/L (3.5-5.1); VANCOMYCIN,RANDOM 15.1 mcg/mL (25.0-50.0)
[2021-08-30] MEDS: MEGESTROL ACETATE 400 MG/10 ML SUSPENSION UDCUP PO SCH (09:00)
[2021-08-30] MEDS: FAMOTIDINE 20 MG TABLET PO SCH (09:09)
[2021-08-30] MEDS: APIXABAN 2.5 MG TABLET PO SCH ×2 (09:09→20:31)
[2021-08-30] MEDS: VANCOMYCIN HCL 1.25 GM in DEXTROSE 5%-WATER 250 ML IV SCH (09:09)
[2021-08-30] MEDS: AMIODARONE HCL 200 MG TABLET PO SCH (09:10)
[2021-08-30 11:46] VITALS: BP 101/54
[2021-08-30 15:13] VITALS: BP 132/72
[2021-08-30 18:00] LABS: GLUCOMETER DEV NAME(LOC) 5S.2B; GLUCOSE,POINT OF CARE 101 MG/DL (70-110)
[2021-08-30 19:44] VITALS: BP 104/51
[2021-08-30] MEDS: ATORVASTATIN CALCIUM 20 MG TABLET PO SCH (20:31)
[2021-08-30] MEDS: OxyCODONE HCL 5 MG IR TABLET PO PRN (20:31)
[2021-08-31] VITALS (8 sets, daily range): BP systolic 106–153; BP diastolic 53–81
[2021-08-31] MEDS: OxyCODONE HCL 5 MG IR TABLET PO PRN ×2 (06:12→16:54)
[2021-08-31] MEDS: APIXABAN 2.5 MG TABLET PO SCH ×3 (07:49→21:10)
[2021-08-31] MEDS: NYSTATIN 500,000 UNITS/5 ML SUSPENSION UDCUP PO SCH ×3 (07:49→14:59)
[2021-08-31] MEDS: MEGESTROL ACETATE 400 MG/10 ML SUSPENSION UDCUP PO SCH (07:50)
[2021-08-31] MEDS: FAMOTIDINE 20 MG TABLET PO SCH (07:51)
[2021-08-31] MEDS: AMIODARONE HCL 200 MG TABLET PO SCH (07:52)
[2021-08-31 07:54] LABS: ALBUMIN 1.9 g/dL (3.4-5.0); BILIRUBIN,TOTAL 0.4 mg/dL (0.1-1.0); C-REACTIVE PROTEIN QUANT 12.23 mg/dL (0.00-0.30); CREATININE 2.32 mg/dL (0.60-1.30); POTASSIUM 3.6 mmol/L (3.5-5.1); TOTAL PROTEIN, SERUM 5.3 g/dL (6.4-8.2)
[2021-08-31] MEDS: LEVOFLOXACIN 750 MG/D5% WATER 150 ML IV SCH (09:04)
[2021-08-31] MEDS ORDERED: SODIUM CHLORIDE 0.9% 250 ML IV ONE (09:13)
[2021-08-31 11:11] LABS: GLUCOMETER DEV NAME(LOC) 5N.1C; GLUCOSE,POINT OF CARE 111 MG/DL (70-110)
[2021-08-31] MEDS ORDERED: MIDAZOLAM HCL 2 MG/2 ML VIAL ONE (13:50)
[2021-08-31] MEDS ORDERED: FentaNYL CITRATE PF 100 MCG/2 ML VIAL ONE (13:50)
[2021-08-31] MEDS ORDERED: MIDAZOLAM HCL 2 MG/2 ML VIAL IVP ONE (14:45)
[2021-08-31] MEDS ORDERED: FentaNYL CITRATE PF 100 MCG/2 ML VIAL IVP ONE (14:45)
[2021-08-31] MEDS ORDERED: BENZOCAINE 20% 50 MCG/SPRAY 57 GM TP ONE (14:45)
[2021-08-31 17:50] LABS: GLUCOMETER DEV NAME(LOC) 5N.1C; GLUCOSE,POINT OF CARE 91 MG/DL (70-110)
[2021-08-31] MEDS: ATORVASTATIN CALCIUM 20 MG TABLET PO SCH ×2 (21:00→21:10)
[2021-09-01] MEDS: NYSTATIN 500,000 UNITS/5 ML SUSPENSION UDCUP PO SCH ×4 (00:22→23:44)
[2021-09-01 04:15] VITALS: BP 129/74
[2021-09-01] MEDS: VANCOMYCIN HCL 1.25 GM in DEXTROSE 5%-WATER 250 ML IV SCH (07:41)
[2021-09-01 08:10] VITALS: BP 132/77
[2021-09-01] MEDS: APIXABAN 2.5 MG TABLET PO SCH ×2 (08:10→20:21)
[2021-09-01] MEDS: MEGESTROL ACETATE 400 MG/10 ML SUSPENSION UDCUP PO SCH (08:10)
[2021-09-01] MEDS: FAMOTIDINE 20 MG TABLET PO SCH (08:10)
[2021-09-01] MEDS: AMIODARONE HCL 200 MG TABLET PO SCH (08:10)
[2021-09-01 11:06] LABS: CALCIUM, TOTAL 8.1 mg/dL (8.8-10.5); CREATININE 2.33 mg/dL (0.60-1.30); POTASSIUM 3.6 mmol/L (3.5-5.1)
[2021-09-01 11:34] VITALS: BP 129/68
[2021-09-01] MEDS: OxyCODONE HCL 5 MG IR TABLET PO PRN (11:45)
[2021-09-01] MEDS ORDERED: PERFLUTREN PROTEIN-A MICROSPHERES 0.22 MG/ML 3 ML VIAL IVP ONE (12:50)
[2021-09-01] MEDS ORDERED: INDIUM IN-111 OXYQUINOLINE/.5MCL ISOTOPE 1 EA INJ INJ ONE (14:40)
[2021-09-01 15:20] VITALS: BP 126/78
[2021-09-01] MEDS: ATORVASTATIN CALCIUM 20 MG TABLET PO SCH (20:21)
[2021-09-01 20:49] VITALS: BP 125/63
[2021-09-02 00:47] VITALS: BP 131/74
[2021-09-02 05:27] VITALS: BP 126/64
[2021-09-02 06:42] LABS: BASOPHILS % (AUTO) 0.9 % (0.0-2.0); HEMATOCRIT 31.2 % (41-53); HEMOGLOBIN 10.3 g/dL (13.5-17.5); LYMPHOCYTES # (AUTO) 1.3 K/uL (1.0-4.8); LYMPHOCYTES % (AUTO) 13.9 % (22.0-44.0); MEAN CORPUSCULAR HEMOGLOBIN 26.6 pg (26.0-34.0); MEAN CORPUSCULAR VOLUME 81 fL (80-100); MONOCYTES # (AUTO) 0.6 K/uL (0.1-1.0); MONOCYTES % (AUTO) 6.2 % (2.0-9.0); NEUTROPHILS # (AUTO) 7.1 K/uL (1.8-7.7); PLATELET COUNT (AUTO) 213 K/uL (150-450); RED BLOOD CELL COUNT(AUTO) 3.87 MIL/uL (4.50-5.90); RED CELL DISTRIBUTION WIDTH 17.1 % (11.5-14.5)
[2021-09-02 07:07] LABS: C-REACTIVE PROTEIN QUANT 8.98 mg/dL (0.00-0.30); CALCIUM, TOTAL 8.1 mg/dL (8.8-10.5); CREATININE 2.21 mg/dL (0.60-1.30); POTASSIUM 3.4 mmol/L (3.5-5.1)
[2021-09-02 07:44] VITALS: BP 125/70
[2021-09-02] MEDS: AMIODARONE HCL 200 MG TABLET PO SCH (09:00)
[2021-09-02] MEDS: FAMOTIDINE 20 MG TABLET PO SCH (09:00)
[2021-09-02] MEDS: NYSTATIN 500,000 UNITS/5 ML SUSPENSION UDCUP PO SCH ×2 (09:00→17:09)
[2021-09-02] MEDS: MEGESTROL ACETATE 400 MG/10 ML SUSPENSION UDCUP PO SCH (09:00)
[2021-09-02] MEDS: APIXABAN 2.5 MG TABLET PO SCH ×2 (09:01→20:16)
[2021-09-02] MEDS: LEVOFLOXACIN 750 MG/D5% WATER 150 ML IV SCH (12:48)
[2021-09-02 16:00] VITALS: BP 111/66
[2021-09-02 19:42] VITALS: BP 121/71
[2021-09-02] MEDS: ATORVASTATIN CALCIUM 20 MG TABLET PO SCH (20:16)
[2021-09-02] MEDS: OxyCODONE HCL 5 MG IR TABLET PO PRN (22:01)
[2021-09-02 23:30] VITALS: BP 124/69
[2021-09-03] MEDS: NYSTATIN 500,000 UNITS/5 ML SUSPENSION UDCUP PO SCH ×4 (00:25→23:30)
[2021-09-03 04:15] VITALS: BP 125/76
[2021-09-03] MEDS: OxyCODONE HCL 5 MG IR TABLET PO PRN (05:53)
[2021-09-03 07:28] LABS: CALCIUM, TOTAL 7.7 mg/dL (8.8-10.5); CREATININE 2.09 mg/dL (0.60-1.30); POTASSIUM 3.7 mmol/L (3.5-5.1)
[2021-09-03] MEDS: VANCOMYCIN HCL 1.25 GM in DEXTROSE 5%-WATER 250 ML IV SCH ×2 (08:00→09:07)
[2021-09-03 08:16] VITALS: BP 129/76
[2021-09-03] MEDS: APIXABAN 2.5 MG TABLET PO SCH ×2 (09:06→19:58)
[2021-09-03] MEDS: MEGESTROL ACETATE 400 MG/10 ML SUSPENSION UDCUP PO SCH (09:06)
[2021-09-03] MEDS: FAMOTIDINE 20 MG TABLET PO SCH (09:06)
[2021-09-03] MEDS: AMIODARONE HCL 200 MG TABLET PO SCH (09:06)
[2021-09-03] MEDS ORDERED: SODIUM CHLORIDE 0.9% 250 ML IV ONE (11:25)
[2021-09-03 11:31] VITALS: BP 146/93
[2021-09-03 15:26] VITALS: BP 151/91
[2021-09-03 19:19] VITALS: BP 128/74
[2021-09-03] MEDS: ATORVASTATIN CALCIUM 20 MG TABLET PO SCH (19:58)
[2021-09-03 23:21] VITALS: BP 120/68
[2021-09-04 05:43] VITALS: BP 135/58
[2021-09-04 07:36] LABS: C-REACTIVE PROTEIN QUANT 7.9 mg/dL (0.00-0.30); CALCIUM, TOTAL 7.8 mg/dL (8.8-10.5); CREATININE 2.22 mg/dL (0.60-1.30); POTASSIUM 3.8 mmol/L (3.5-5.1)
[2021-09-04 07:45] LABS: BASOPHILS % (AUTO) 0.7 % (0.0-2.0); EOSINOPHILS % (AUTO) 1.3 % (1.0-6.0); HEMATOCRIT 29.5 % (41-53); HEMOGLOBIN 9.8 g/dL (13.5-17.5); LYMPHOCYTES # (AUTO) 1.6 K/uL (1.0-4.8); LYMPHOCYTES % (AUTO) 17.7 % (22.0-44.0); MEAN CORPUSCULAR HEMOGLOBIN 26.5 pg (26.0-34.0); MEAN CORPUSCULAR HGB CONC 33.2 G/dL (31.0-37.0); MEAN CORPUSCULAR VOLUME 80 fL (80-100); MONOCYTES # (AUTO) 0.8 K/uL (0.1-1.0); MONOCYTES % (AUTO) 8.9 % (2.0-9.0); NEUTROPHILS # (AUTO) 6.6 K/uL (1.8-7.7); NEUTROPHILS % (AUTO) 71.4 % (40.0-70.0); PLATELET COUNT (AUTO) 205 K/uL (150-450); RED BLOOD CELL COUNT(AUTO) 3.69 MIL/uL (4.50-5.90); RED CELL DISTRIBUTION WIDTH 17.1 % (11.5-14.5)
[2021-09-04 07:59] VITALS: BP 115/55
[2021-09-04] MEDS: NYSTATIN 500,000 UNITS/5 ML SUSPENSION UDCUP PO SCH ×2 (08:40→16:00)
[2021-09-04] MEDS: MEGESTROL ACETATE 400 MG/10 ML SUSPENSION UDCUP PO SCH (08:41)
[2021-09-04] MEDS: AMIODARONE HCL 200 MG TABLET PO SCH (08:42)
[2021-09-04] MEDS: APIXABAN 2.5 MG TABLET PO SCH (08:42)
[2021-09-04] MEDS: FAMOTIDINE 20 MG TABLET PO SCH (08:43)
[2021-09-04] MEDS: LEVOFLOXACIN 750 MG/D5% WATER 150 ML IV SCH ×2 (10:00→10:32)
[2021-09-04] MEDS: OxyCODONE HCL 5 MG IR TABLET PO PRN ×2 (10:49→18:53)
[2021-09-04] MEDS ORDERED: *CLINICAL-LEVOFLOXACIN ORAL DOSING CLINICAL ONE (12:00)
[2021-09-04 12:20] VITALS: BP 128/63
[2021-09-04] MEDS ORDERED: LEVOFLOXACIN 750 MG TABLET PO SCH (13:00)
[2021-09-04 15:40] VITALS: BP 93/68
[2021-09-04] MEDS ORDERED: LEVO750T68 PO (19:14)
[2021-09-04] MEDS ORDERED: MEGE40TA8 PO (19:16)
[2021-09-04] MEDS ORDERED: ATOR20TA86 PO (19:17)
[2021-09-04] MEDS ORDERED: AMIO200T68 PO (19:17)
[2021-09-04] MEDS ORDERED: APIX2.5T PO (19:17)
== END 2021-09-04 18:55 | disposition short-term general hospital (02) | DRG 871 ==
LOC: EMS 20:53 → 5S 08-22 07:38
PROVIDERS: ADMIT Internal Medicine; ATTEND Internal Medicine
PROC: B24BZZ4 Ultrasonography of Heart with Aorta, Transesophageal (ICD-10-PCS; principal; 2021-08-31)
DX: A41.01 Sepsis due to Methicillin susceptible Staphylococcus aureus (principal); R53.2 Functional quadriplegia; L89.153 Pressure ulcer of sacral region, stage 3; G92.8 Other toxic encephalopathy; I48.21 Permanent atrial fibrillation; N39.0 Urinary tract infection, site not specified; N18.4 Chronic kidney disease, stage 4 (severe); K51.90 Ulcerative colitis, unspecified, without complications; I48.20 Chronic atrial fibrillation, unspecified; F11.20 Opioid dependence, uncomplicated; I12.9 Hypertensive chronic kidney disease with stage 1 through stage 4 chronic kidney disease, or unspecified chronic kidney disease; Z96.649 Presence of unspecified artificial hip joint; Z79.01 Long term (current) use of anticoagulants; B95.2 Enterococcus as the cause of diseases classified elsewhere; E78.00 Pure hypercholesterolemia, unspecified; G89.4 Chronic pain syndrome; I49.5 Sick sinus syndrome; Z95.0 Presence of cardiac pacemaker; Z88.7 Allergy status to serum and vaccine; Z88.8 Allergy status to other drugs, medicaments and biological substances; R62.7 Adult failure to thrive; Z68.29 Body mass index [BMI] 29.0-29.9, adult; R13.10 Dysphagia, unspecified; I34.0 Nonrheumatic mitral (valve) insufficiency; Z20.822 Contact with and (suspected) exposure to COVID-19
CPT/HCPCS: 51702; 70450; 71045; 72128; 72131; 74018; 74176; 78806; 80048; 80053; 80202; 81001; 81002; 82271; 82962; 83605; 83735; 83880; 84484; 85025; 85610; 85730; 86140; 87040; 87070; 87077; 87081; 87086; 87186; 87205; 93005; 93308; 93312; 97163; 99291; A9547; J0696; J0713; J1956; J2060; J2250; J2405; J2543; J3010; J3370; J7030; J7040; J7050; J7060; Q9967; 36415-L1; 36415-TC